=== PATIENT | female | born 1955 | race Caucasian/White ===

== ENCOUNTER → 2017-08-16 | Outpatient (CLI) | payer MEDICARE, OTHER ==
[~2017-08-16] MED LIST: ALBU90OI6 INH; ALPR.5 PO; BECL80OI INH; CARB100ER PO; CARB200 PO; CARB200ER PO; CARBAMAZEPINE; CLIN150 PO; CRUTCH4 USE; CYCL10 PO; Colace100 MG PO; DEXA4 PO; EFFEXOR; ESCI10; Epitol200 MG PO; FLUT110OIA INH; GABA300 PO; IBUP200 PO; Keflex500 MG PO; LORA1 PO; METPHE10 PO; MODAFINIL100 MG PO; NAPR500 PO; Nicotine Patch1 EAC5 TOP; Norco 5-325 Ta1 EACH PO; OMEP20ER PO; OMEPRAZOLE MAGN20 MG PO; OXYACE5T PO; PANT40; Prednisone20 MG PO; QUET100 PO; QUET25 PO; TOPI100; TRAM50 PO; Tylenol325 MG PO; VENL75; VENL75 PO; VENL75ER PO
[2017-08-17 18:48] LABS: MDA Not Detected (NOTDET); MDEA Not Detected (NOTDET); MDMA Not Detected (NOTDET)
[2017-08-17 19:59] LABS: Codeine Not Detected (NOTDET); Hydrocodone Not Detected (NOTDET); Hydromorphone Not Detected (NOTDET); Morphine 561 ng/mL (NOTDET); Norhydrocodone Not Detected (NOTDET); Noroxycodone Not Detected (NOTDET)
[2017-08-17 23:13] LABS: Buprenorphine GCMS 16 ng/mL (NOTDET); Norbuprenorphine GCMS 5 ng/mL (NOTDET)
== END ==
LOC: LAB 08:45
PROVIDERS: Psychiatry & Neurology Psychiatry
DX: F19.10 Other psychoactive substance abuse, uncomplicated (principal)
CPT/HCPCS: G0480

== ENCOUNTER 2017-09-02 09:57 | Observation (INO) | payer MEDICARE, OTHER ==
[~2017-09-02] VITALS: Ht 167.6 cm; Wt 68.9 kg
[~2017-09-02 09:57] MED LIST changes: -MODAFINIL100 MG PO; -Nicotine Patch1 EAC5 TOP; -OMEPRAZOLE MAGN20 MG PO
[2017-09-02 10:18] LABS: BASOPHILS ABSOLUTE AUTO 0.04 K/mm3 (0.00-0.23); BASOPHILS PERCENT AUTO 1 % (0-2); EOSINOPHILS ABSOLUTE AUTO 0.14 K/mm3 (0.00-0.68); EOSINOPHILS PERCENT AUTO 2 % (0-6); Hematocrit 45.3 % (33.0-51.0); Hemoglobin 14.8 g/dL (11.5-16.0); IMMATURE GRAN ABSOLUTE AUTO 0.03 K/mm3 (0.00-0.10); IMMATURE GRAN PERCENT AUTO 0 % (0-1); LYMPHOCYTES ABSOLUTE AUTO 2.17 K/mm3 (0.84-5.20); LYMPHOCYTES PERCENT AUTO 26 % (21-46); MONOCYTES ABSOLUTE AUTO 0.74 K/mm3 (0.16-1.47); MONOCYTES PERCENT AUTO 9 % (4-13); Mean Corpuscular HGB 27.7 pg (26.0-34.0); Mean Corpuscular HGB Conc 32.7 g/dL (31.5-36.5); Mean Corpuscular Volume 85 fL (80-100); Mean Platelet Volume 9.4 fL (9.1-12.4); NEUTROPHILS ABSOLUTE AUTO 5.16 K/mm3 (1.96-9.15); NEUTROPHILS PERCENT AUTO 62 % (41-73); Platelet Count 333 K/mm3 (150-400); RDW Coefficient Variation 13.6 % (11.7-14.2); RDW Standard Deviation 42.2 fL (35.1-46.3); Red Blood Cell Count 5.35 M/mm3 (3.80-5.20); White Blood Cell Count 8.28 K/mm3 (4.00-11.30)
[2017-09-02 10:39] LABS: Alanine Aminotransfer (ALT/SGP 40 U/L (12-78); Albumin, Blood 3.4 g/dL (3.4-5.0); Albumin/Globulin Ratio 0.8 (0.8-1.8); Alk Phos 102 U/L (50-136); Anion Gap 6 mmol/L (6-16); Aspartate Aminotrans (AST/SGOT 24 U/L (12-37); Bilirubin, Total 0.1 mg/dL (0.1-1.0); Blood Urea Nitrogen 21 mg/dL (8-24); Bun/Creatinine Ratio 33.8 (12.0-20.0); CO2, Blood 28 mmol/L (21-32); Calcium, Blood 8.8 mg/dL (8.5-10.1); Chloride, Blood 105 mmol/L (98-108); Creatinine, Blood 0.62 mg/dL (0.40-1.00); Globulin, Blood 4.5 g/dL (2.2-4.0); Glomerular Filtration Rate >60 (60-); Glucose, Blood 93 mg/dL (70-99); Potassium, Blood 4.4 mmol/L (3.5-5.5); Sodium, Blood 139 mmol/L (136-145); Total Protein, Blood 7.9 g/dL (6.4-8.2); Troponin I <0.015 ng/mL (0.000-0.040)
[2017-09-02 10:54] LABS: Carbamazepine 8.8 ug/mL (4.0-12.0)
[2017-09-02 12:03] LABS: Magnesium, Blood 2.3 mg/dL (1.6-2.4)
[2017-09-02 14:35] LABS: U Amphetamine Screen Not Detected; U Barbituate Screen Not Detected; U Benzodiazapine Screen Not Detected; U Buprenorphine Screen Not Detected; U Cannabinoids Screen DETECTED; U Cocaine Screen Not Detected; U Methadone Screen Not Detected; U Methamphetamine Screen Not Detected; U Opiates Screen Not Detected; U Oxycodone Screen Not Detected; U Phencyclidine Screen Not Detected; U Propoxyphene Screen Not Detected
[2017-09-03 04:29] LABS: BASOPHILS ABSOLUTE AUTO 0.04 K/mm3 (0.00-0.23); BASOPHILS PERCENT AUTO 1 % (0-2); EOSINOPHILS ABSOLUTE AUTO 0.12 K/mm3 (0.00-0.68); EOSINOPHILS PERCENT AUTO 2 % (0-6); Hematocrit 39.7 % (33.0-51.0); Hemoglobin 12.8 g/dL (11.5-16.0); IMMATURE GRAN ABSOLUTE AUTO 0.03 K/mm3 (0.00-0.10); IMMATURE GRAN PERCENT AUTO 0 % (0-1); LYMPHOCYTES ABSOLUTE AUTO 2.24 K/mm3 (0.84-5.20); LYMPHOCYTES PERCENT AUTO 33 % (21-46); MONOCYTES ABSOLUTE AUTO 0.61 K/mm3 (0.16-1.47); MONOCYTES PERCENT AUTO 9 % (4-13); Mean Corpuscular HGB 27.7 pg (26.0-34.0); Mean Corpuscular HGB Conc 32.2 g/dL (31.5-36.5); Mean Corpuscular Volume 86 fL (80-100); Mean Platelet Volume 9.6 fL (9.1-12.4); NEUTROPHILS PERCENT AUTO 56 % (41-73); Platelet Count 278 K/mm3 (150-400); RDW Coefficient Variation 13.6 % (11.7-14.2); RDW Standard Deviation 43.1 fL (35.1-46.3); Red Blood Cell Count 4.62 M/mm3 (3.80-5.20); White Blood Cell Count 6.84 K/mm3 (4.00-11.30)
[2017-09-03 05:05] LABS: Alanine Aminotransfer (ALT/SGP 36 U/L (12-78); Albumin, Blood 3.1 g/dL (3.4-5.0); Albumin/Globulin Ratio 0.8 (0.8-1.8); Alk Phos 89 U/L (50-136); Anion Gap 6 mmol/L (6-16); Aspartate Aminotrans (AST/SGOT 21 U/L (12-37); Bilirubin, Total 0.2 mg/dL (0.1-1.0); Blood Urea Nitrogen 26 mg/dL (8-24); Bun/Creatinine Ratio 40.6 (12.0-20.0); CHOL/HDL RATIO 3.7; CO2, Blood 29 mmol/L (21-32); Calcium, Blood 8.3 mg/dL (8.5-10.1); Chloride, Blood 105 mmol/L (98-108); Cholesterol 236 mg/dL (50-200); Creatinine, Blood 0.64 mg/dL (0.40-1.00); Glomerular Filtration Rate >60 (60-); Glucose, Blood 97 mg/dL (70-99); HDL Cholesterol 64 mg/dL (>39); Low Density Lipoprotein Chol 129 mg/dL (0-110); Potassium, Blood 4.8 mmol/L (3.5-5.5); Sodium, Blood 140 mmol/L (136-145); Total Protein, Blood 7.1 g/dL (6.4-8.2); Triglycerides 217 mg/dL (30-160); Very Low Density Lipoprot Chol 43 mg/dL (6-32)
[2017-09-05] MEDS ORDERED: MODAFINIL100 MG PO (09:06)
[2017-09-05] MEDS ORDERED: Nicotine Patch1 EAC5 TOP (09:08)
[2017-09-05] MEDS ORDERED: OMEPRAZOLE MAGN20 MG PO (09:09)
== END 2017-09-05 10:07 | disposition home or self-care (01) ==
LOC: ER 09:57 → MEDS 09:58 → PCU 09:58 → MEDS 12:12 → ENPENDDIS 09-05 08:00 → MEDS 09-05 10:07
PROVIDERS: Emergency Medicine; Internal Medicine
DX: I48.91 Unspecified atrial fibrillation (principal); I48.92 Unspecified atrial flutter; B19.20 Unspecified viral hepatitis C without hepatic coma; G93.89 Other specified disorders of brain; F41.9 Anxiety disorder, unspecified; R40.0 Somnolence; F32.9 Major depressive disorder, single episode, unspecified; G40.909 Epilepsy, unspecified, not intractable, without status epilepticus; J44.9 Chronic obstructive pulmonary disease, unspecified; F19.11 Other psychoactive substance abuse, in remission; G62.9 Polyneuropathy, unspecified; Z90.710 Acquired absence of both cervix and uterus; Z98.890 Other specified postprocedural states; Z87.891 Personal history of nicotine dependence; Z79.899 Other long term (current) drug therapy; Z90.89 Acquired absence of other organs
CPT/HCPCS: 36415; 71045; 80053; 80061; 80156; 83735; 83880; 84443; 84484; 85025; 93005; 93010; 93306; 96372; 96374; 96375; 96376; 99285; G0378; J1650; J2405

== ENCOUNTER → 2017-11-03 | Outpatient (CLI) | payer MEDICARE, OTHER ==
[~2017-11-03] MED LIST changes: +MODAFINIL100 MG PO; +Nicotine Patch1 EAC5 TOP; +OMEPRAZOLE MAGN20 MG PO
== END | disposition home or self-care (01) ==
LOC: LAB 10:55 → LAB SHORT 10:55
DX: Z51.81 Encounter for therapeutic drug level monitoring (principal); Z79.899 Other long term (current) drug therapy
CPT/HCPCS: G0480

== ENCOUNTER 2018-07-20 08:33 | Emergency (ER) | payer MEDICARE, OTHER ==
[~2018-07-20] VITALS: Ht 162.6 cm; Wt 81.7 kg
[2018-07-20 09:35] LABS: Source, Urine Voided
[2018-07-20 09:40] LABS: BASOPHILS ABSOLUTE AUTO 0.03 K/mm3 (0.00-0.23); BASOPHILS PERCENT AUTO 0 % (0-2); EOSINOPHILS ABSOLUTE AUTO 0.11 K/mm3 (0.00-0.68); EOSINOPHILS PERCENT AUTO 2 % (0-6); Hematocrit 41.3 % (33.0-51.0); Hemoglobin 13.6 g/dL (11.5-16.0); IMMATURE GRAN ABSOLUTE AUTO 0.03 K/mm3 (0.00-0.10); IMMATURE GRAN PERCENT AUTO 0 % (0-1); LYMPHOCYTES ABSOLUTE AUTO 2.04 K/mm3 (0.84-5.20); LYMPHOCYTES PERCENT AUTO 28 % (21-46); MONOCYTES ABSOLUTE AUTO 0.61 K/mm3 (0.16-1.47); MONOCYTES PERCENT AUTO 8 % (4-13); Mean Corpuscular HGB 28.8 pg (26.0-34.0); Mean Corpuscular HGB Conc 32.9 g/dL (31.5-36.5); Mean Corpuscular Volume 88 fL (80-100); Mean Platelet Volume 9.9 fL (9.1-12.4); NEUTROPHILS ABSOLUTE AUTO 4.52 K/mm3 (1.96-9.15); NEUTROPHILS PERCENT AUTO 62 % (41-73); Platelet Count 284 K/mm3 (150-400); RDW Standard Deviation 42.3 fL (35.1-46.3); Red Blood Cell Count 4.72 M/mm3 (3.80-5.20); White Blood Cell Count 7.34 K/mm3 (4.00-11.30)
[2018-07-20 09:41] LABS: Appearance, Urine Clear (Clear); Bilirubin, Urine Neg (Neg); Blood, Urine Neg (Neg); Color, Urine Yellow (P-Yellow); Glucose Qualitative, Urine Neg (Neg); Ketones, Urine Neg (Neg); Leukocyte Esterase, Urine 2+ (Neg); Nitrite, Urine Neg (Neg); Protein, Urine Neg (Neg); Specific Gravity, Urine 1.025 (1.003-1.022); Urobilinogen, Urine NORM (Normal)
[2018-07-20 09:53] LABS: Bacteria Rare /hpf; Red Blood Cells, Urine Not Seen /hpf (0-2); Squamous Epithelial Cells Rare /hpf (Few)
[2018-07-20 10:05] LABS: U Amphetamine Screen Not Detected; U Barbituate Screen Not Detected; U Benzodiazapine Screen Not Detected; U Buprenorphine Screen Not Detected; U Cannabinoids Screen DETECTED; U Cocaine Screen Not Detected; U Methadone Screen Not Detected; U Methamphetamine Screen Not Detected; U Opiates Screen Not Detected; U Oxycodone Screen Not Detected; U Phencyclidine Screen Not Detected; U Propoxyphene Screen Not Detected
[2018-07-20 10:16] LABS: Alanine Aminotransfer (ALT/SGP 35 U/L (12-78); Albumin, Blood 3.6 g/dL (3.4-5.0); Albumin/Globulin Ratio 0.9 (0.8-1.8); Alk Phos 82 U/L (50-136); Anion Gap 6 mmol/L (6-16); Aspartate Aminotrans (AST/SGOT 24 U/L (12-37); Bilirubin, Total 0.3 mg/dL (0.1-1.0); Blood Urea Nitrogen 19 mg/dL (8-24); Bun/Creatinine Ratio 33.4 (12.0-20.0); CO2, Blood 26 mmol/L (21-32); Calcium, Blood 8.2 mg/dL (8.5-10.1); Chloride, Blood 108 mmol/L (98-108); Creatinine, Blood 0.57 mg/dL (0.40-1.00); Ethanol (Alcohol), Blood, Med <3 mg/dL; Globulin, Blood 3.8 g/dL (2.2-4.0); Glomerular Filtration Rate >60 (60-); Glucose, Blood 80 mg/dL (70-99); Potassium, Blood 4.2 mmol/L (3.5-5.5); Salicylate 3.5 mg/dL (2.8-20.0); Sodium, Blood 140 mmol/L (136-145); Total Protein, Blood 7.4 g/dL (6.4-8.2)
[2018-07-20 10:22] LABS: Acetaminophen, Random <2.0 ug/mL (10.0-30.0)
[2018-07-20] MEDS ORDERED: Tegretol200 MG PO (12:00)
== END 2018-07-20 13:00 | disposition home or self-care (01) ==
LOC: ER 08:33
PROVIDERS: Emergency Medicine
DX: F32.9 Major depressive disorder, single episode, unspecified (principal); F43.9 Reaction to severe stress, unspecified; F41.9 Anxiety disorder, unspecified; Z72.0 Tobacco use
CPT/HCPCS: 80053; 81001; 81025; 84443; 85025; 87086; 99285; G0480; Q3014

== ENCOUNTER 2019-01-02 08:41 | Emergency (ER) | payer MEDICARE, OTHER ==
[~2019-01-02 08:41] MED LIST changes: +Tegretol200 MG PO
== END 2019-01-02 08:55 | disposition left against medical advice (07) ==
LOC: ER 08:41
DX: Z53.21 Procedure and treatment not carried out due to patient leaving prior to being seen by health care provider (principal)

== ENCOUNTER 2021-01-30 19:16 | Inpatient (IN) | payer MEDICARE ==
[~2021-01-30] VITALS: Ht 162.6 cm; Wt 61.8 kg
--- NOTE | 2021-01-30 01:15 | NUR ---
ASSUMED CARE OF PATIENT AT APPROXIMATELY 0042 FROM ED RN. PATIENT ARRIVED TO UNIT SLOUCHED OVER IN ED BED; HEPARIN GTT LINE NOT CONNECTED AND CARDIZEM GTT AT 15MG/HR. PATIENT COMPLAINING OF CHEST PAIN IN CHEST THAT SHE DESCRIBES AT "[facility]"; PATIENT STATES NOTHING GIVEN IN ER HELPED; DENIES THAT NITRO HELPED BUT WILL TAKE FENTANYL. PATIENT HAVING HARD TIME GETTING COMFORTABLE; SITTING UP AND LAYING BACK; REPORTS BED HURTS BACK; BREAHING LABORED AT TIMES. PG STATED BY EVANGELINA JOLLY, DUPLIGRAPH OPERATOR. PATIENT REPORTS USING HEROIN 4/5 TIMES A DAY EVERY DAY; METH AND MARIJUANA. ADMISSION COMPLETE. AFIB W/ RATE IN 70-90'S; CARDIZEM GTT AT 15ML HELD AT THIS TIME DUE TO SBP 90-82 SINCE ARRIVAL. HEPARIN GTT STARTED PER ORDER.
[2021-01-30 19:35] LABS: Calcium, Ionized (POC) 0.94 mmol/L (1.10-1.46); Chloride (POC) 97 mmol/L (98-108); Creatinine (POC) 0.7 mg/dL (0.6-1.0); Glucose (ISTAT POC) 149 mg/dL (70-99); Hemoglobin (POC) 14.3 g/dL (12.0-16.0); Potassium (POC) 3.1 mmol/L (3.5-5.5); Sodium (POC) 131 mmol/L (135-148); Total CO2 (POC) 22 mmol/L (21-32)
[2021-01-30 20:46] LABS: Source, Urine Catheter
[2021-01-30 20:51] LABS: Bilirubin, Urine Neg (Neg); Blood, Urine 1+ (Neg); Glucose Qualitative, Urine 1+ (Neg); Ketones, Urine Neg (Neg); Leukocyte Esterase, Urine 1+ (Neg); Nitrite, Urine Neg (Neg); Protein, Urine 3+ (Neg); Urobilinogen, Urine NORM (Normal)
[2021-01-30 20:52] LABS: Appearance, Urine Clear (Clear); Color, Urine Yellow (P-Yellow)
[2021-01-30 20:59] LABS: Bacteria Many /hpf
[2021-01-30 21:00] LABS: Squamous Epithelial Cells Mod /hpf (Few)
[2021-01-30 21:04] LABS: U Amphetamine Screen DETECTED; U Barbituate Screen Not Detected; U Benzodiazapine Screen Not Detected; U Buprenorphine Screen Not Detected; U Cannabinoids Screen DETECTED; U Cocaine Screen Not Detected; U Methadone Screen Not Detected; U Methamphetamine Screen DETECTED; U Opiates Screen DETECTED; U Oxycodone Screen Not Detected; U Phencyclidine Screen Not Detected; U Propoxyphene Screen Not Detected
[2021-01-30 21:21] LABS: Hematocrit 37.9 % (33.0-51.0); Hemoglobin 12.8 g/dL (11.5-16.0); Mean Corpuscular HGB 26.8 pg (26.0-34.0); Mean Corpuscular HGB Conc 33.8 g/dL (31.5-36.5); Mean Corpuscular Volume 80 fL (80-100); Mean Platelet Volume 10.3 fL (9.1-12.4); Platelet Count 190 K/mm3 (150-400); RDW Standard Deviation 41.2 fL (35.1-46.3); Red Blood Cell Count 4.77 M/mm3 (3.80-5.20); White Blood Cell Count 18.24 K/mm3 (4.00-11.30)
[2021-01-30 21:37] LABS: International Normalized Ratio 1.06; Prothrombin Time Results 11.4 Sec (9.7-11.5)
[2021-01-30 21:50] LABS: Alanine Aminotransfer (ALT/SGP 28 U/L (12-78); Albumin, Blood 2.8 g/dL (3.4-5.0); Albumin/Globulin Ratio 0.7 (0.8-1.8); Alk Phos 105 U/L (50-136); Anion Gap 9 mmol/L (6-16); Aspartate Aminotrans (AST/SGOT 27 U/L (12-37); Bilirubin, Total 0.7 mg/dL (0.1-1.0); Blood Urea Nitrogen 13 mg/dL (8-24); Bun/Creatinine Ratio 19.5 (12.0-20.0); CO2, Blood 24 mmol/L (21-32); Calcium, Blood 8.6 mg/dL (8.5-10.1); Chloride, Blood 102 mmol/L (98-108); Creatinine, Blood 0.67 mg/dL (0.40-1.00); Globulin, Blood 4.3 g/dL (2.2-4.0); Glomerular Filtration Rate >60 (60-); Glucose, Blood 128 mg/dL (70-99); Sodium, Blood 135 mmol/L (136-145); Total Protein, Blood 7.1 g/dL (6.4-8.2); Troponin I 0.861 ng/mL (0.000-0.040)
[2021-01-30 22:14] LABS: BAND PERCENT MAN 30 % (0-8); BASOPHILS PERCENT MAN 0 % (0-2); EOSINOPHILS PERCENT MAN 0 % (0-6); LYMPHOCYTES ABSOLUTE MAN 1.09 K/mm3 (0.84-5.20); LYMPHOCYTES PERCENT MAN 6 % (21-46); MONOCYTES ABSOLUTE MAN 0.54 K/mm3 (0.16-1.47); MONOCYTES PERCENT MAN 3 % (4-13); NEUTROPHILS ABSOLUTE MAN 16.59 K/mm3 (1.96-9.15); SEG NEUTROPHILS PERCENT MAN 61 % (41-73); TOTAL CELLS COUNTED 100
[2021-01-30 22:47] LABS: CHOL/HDL RATIO 2.6; Cholesterol 137 mg/dL (50-200); HDL Cholesterol 53 mg/dL (>39); LDL/HDL RATIO 1.3; Low Density Lipoprotein Chol 70 mg/dL (0-110); Thyroid Stimulating Hormone 0.517 uIU/mL (0.360-4.800); Triglycerides 68 mg/dL (30-160); Very Low Density Lipoprot Chol 14 mg/dL (6-32)
[2021-01-31 00:23] LABS: SARS-Cov-2 (COVID-19) PCR, MMC NEGATIVE (NEGATIVE)
--- NOTE | 2021-01-31 01:28 | NUR ---
ST CHANGES; ST CHANGES NOTED ON HEART MONITOR; EKG DONE AND TAKEN TO DR. FISHER; CALLING COSTUME DIRECTOR
--- NOTE | 2021-01-31 01:35 | NUR ---
DR. WILSON WAS NOTIFIED THAT PT'S RHYTHM HAD CHANGED AND THAT THERE'S ELEVATIONS GLOBALLY ON THE EKG AND THAT PT IS HAVING CRUSHING BACK PAIN DIRECTLY BEHIND HER HEART. WAS MADE AWARE OF HER ELEVATED TROP. DR. WILSON STATES THAT THE PT IS HAVING REPOLARIZATION ISSUES OR PERICARDITIS AND THAT THIS IS NOT A STEMI.
[2021-01-31 03:00] LABS: Anion Gap 6 mmol/L (6-16); Blood Urea Nitrogen 13 mg/dL (8-24); Bun/Creatinine Ratio 17.1 (12.0-20.0); CO2, Blood 26 mmol/L (21-32); Calcium, Blood 8.3 mg/dL (8.5-10.1); Chloride, Blood 103 mmol/L (98-108); Creatinine, Blood 0.76 mg/dL (0.40-1.00); Glomerular Filtration Rate >60 (60-); Glucose, Blood 130 mg/dL (70-99); Potassium, Blood 3.8 mmol/L (3.5-5.5); Sodium, Blood 135 mmol/L (136-145)
--- NOTE | 2021-01-31 03:48 | NUR ---
CALLED DR. FISHER REGARDING PATIENT CALLING OUT WITH 10/10 CHEST PAIN REQUESTING FENTANYL; STATES NITRO DOESNT HELP; 2LPM VIA NC FOR CP; DIAPHORETIC; SBP IN 90'S; ORDERS FOR 250CC BOLUS AND CALL IF BOLUS DOES NOT IMPROVE BP.
--- NOTE | 2021-01-31 04:18 | NUR ---
CALLED DR. FISHER REGARDING PATIENT CALLING OUT STATING CHEST PAIN; BLOOD PRESSURE HAD COME UP TO 110 SBP BUT BACK DOWN TO 97/58 AFTER BOLUS; ORDERS FOR ANOTHER 250ML BOLUS NOW
--- NOTE | 2021-01-31 06:14 | NUR ---
FENTANYL HELPED PAIN; PATIENT ATTEMPTED TO GET UP INDEPENDENTLY TO URINATE; HAS BEEN INCONTINENT OF URINE; REPORTS CHEST PAIN STILL BUT THEN REPORTS SHE WOULD LIKE STRAWBERRY YOUGURT FOR BREAKFAST. BLOOD PRESSURE STABLE; NO OTHER ACUTE CHANGES TO REPORT.
[2021-01-31 09:00] LABS: Hematocrit 35.8 % (33.0-51.0); Hemoglobin 11.8 g/dL (11.5-16.0); Mean Corpuscular HGB 26.6 pg (26.0-34.0); Mean Corpuscular Volume 81 fL (80-100); Mean Platelet Volume 10.6 fL (9.1-12.4); Platelet Count 186 K/mm3 (150-400); RDW Coefficient Variation 14.2 % (11.7-14.2); RDW Standard Deviation 41.9 fL (35.1-46.3); Red Blood Cell Count 4.43 M/mm3 (3.80-5.20); White Blood Cell Count 20.85 K/mm3 (4.00-11.30)
[2021-01-31 09:36] LABS: BAND PERCENT MAN 26 % (0-8); BASOPHILS PERCENT MAN 0 % (0-2); EOSINOPHILS PERCENT MAN 0 % (0-6); LYMPHOCYTES ABSOLUTE MAN 1.04 K/mm3 (0.84-5.20); LYMPHOCYTES PERCENT MAN 5 % (21-46); MONOCYTES ABSOLUTE MAN 0.83 K/mm3 (0.16-1.47); MONOCYTES PERCENT MAN 4 % (4-13); NEUTROPHILS ABSOLUTE MAN 18.97 K/mm3 (1.96-9.15); SEG NEUTROPHILS PERCENT MAN 65 % (41-73); TOTAL CELLS COUNTED 100
--- NOTE | 2021-01-31 12:56 | NUR ---
Echocardiogram performed.
--- NOTE | 2021-01-31 17:10 | NUR ---
PT SUMMARY: PT POST ANGIO THIS AM CORONARY ARTERIES WERE CLEAR NO INTERVENTION DONE, RIGHT RADIAL ACCESS SITE WITH TEGADERM CDI NO HEMATOMA NOTED AROUND THE SITE. VITALS HRR REMAINED AFIB CONTROLLED ON THE 90'S CARDIZEM GTT OFF PT WAS STARTED ON ORAL METOPROLOL. BP SYSTOLIC ON THE 120'S, SATS ABOVE 97% ON RA, AFEBRILE. KEEPS C/O CHEST AND ABD PAIN, NAUSEA AND DRY HEAVING SHOWING SYMPTOMS OF HEROIN WITHDRAWAL PT STATED SHE WANTS TO GO HOME AND THAT SHE NEEDS HER HEROINE SHOT, ZOFRAN AND MAALOX ORDERED PER PHARMACY POLICY PT CANNOT START ANY SUBOXONE AND METHADONE HERE SINCE PT IS NOT ON THERAPY OR REHAB PT WAS REQUESTING FOR ONE FOR THE WITHDRAWAL, PT UNDERSTOOD WHEN EXPLAINED. CONTINUES TO SCREAM AND YELL FOR PAIN. PT WAS STARTED ON VANCO WELL FOR SEPSIS, CONTINUES ON HEPARIN GTT FOR PE. SBA FOR TRANSFERS. PT ABLE TO MAKE NEEDS KNOWN, ANXIOUS MOST OF THE TIME. DR LINO AWARE OF PT'S SITUATION. NO APPETITE AT THIS TIME REFUSED HER DINNER. PT ALSO C/O PINS AND NEEDLES ON BOTH LEGS, BENGAY ORDERED BUT WAS NOT THAT EFFECTIVE. PT GOT POWERGLIDE PULLED AND ONE IV LINE, IMPULSIVE AT TIMES, BED ALARM ON FOR SAFETY, MULTIPLE ATTEMPTS OF GETTING OUT OF BED WITHOUT CALLING FOR HELP. PT ABLE TO MAKE NEEDS KNOWN, CALL LIGHTS WITHIN REACH WILL REPORT TO ONCOMING SHIFT.
--- NOTE | 2021-01-31 22:30 | NUR ---
PT WANTING TO LEAVE DUE TO SEVERE PAIN THAT ORDERED MEDS WERE NOT HELPING. PT STS SHE HAS NEUROPATHY AND SELF MEDICATES. DR DAVIDSON WAS CALLED. PT PULLED ALL LINES AND CORDS OFF. HEPARIN WAS PUT ON STANDBY UNTIL NEW IV WAS STARTED.
[2021-02-01 01:49] LABS: Hematocrit 35.2 % (33.0-51.0); Hemoglobin 11.9 g/dL (11.5-16.0); Mean Corpuscular HGB 26.7 pg (26.0-34.0); Mean Corpuscular HGB Conc 33.8 g/dL (31.5-36.5); Mean Corpuscular Volume 79 fL (80-100); Mean Platelet Volume 10.8 fL (9.1-12.4); Platelet Count 241 K/mm3 (150-400); RDW Coefficient Variation 14.4 % (11.7-14.2); Red Blood Cell Count 4.45 M/mm3 (3.80-5.20); White Blood Cell Count 21.24 K/mm3 (4.00-11.30)
[2021-02-01 02:06] LABS: Alanine Aminotransfer (ALT/SGP 21 U/L (12-78); Albumin, Blood 2.4 g/dL (3.4-5.0); Albumin/Globulin Ratio 0.6 (0.8-1.8); Alk Phos 116 U/L (50-136); Anion Gap 5 mmol/L (6-16); Aspartate Aminotrans (AST/SGOT 17 U/L (12-37); Bilirubin, Total 0.8 mg/dL (0.1-1.0); Blood Urea Nitrogen 16 mg/dL (8-24); CO2, Blood 26 mmol/L (21-32); Calcium, Blood 8.5 mg/dL (8.5-10.1); Chloride, Blood 102 mmol/L (98-108); Creatinine, Blood 0.55 mg/dL (0.40-1.00); Glomerular Filtration Rate >60 (60-); Glucose, Blood 161 mg/dL (70-99); Potassium, Blood 3.5 mmol/L (3.5-5.5); Sodium, Blood 133 mmol/L (136-145); Total Protein, Blood 6.4 g/dL (6.4-8.2)
[2021-02-01 02:12] LABS: BAND PERCENT MAN 18 % (0-8); BASOPHILS PERCENT MAN 0 % (0-2); EOSINOPHILS PERCENT MAN 0 % (0-6); LYMPHOCYTES ABSOLUTE MAN 1.48 K/mm3 (0.84-5.20); LYMPHOCYTES PERCENT MAN 7 % (21-46); MONOCYTES ABSOLUTE MAN 0.84 K/mm3 (0.16-1.47); MONOCYTES PERCENT MAN 4 % (4-13); SEG NEUTROPHILS PERCENT MAN 71 % (41-73); TOTAL CELLS COUNTED 100
--- NOTE | 2021-02-01 04:44 | NUR ---
SHIFT SUMMARY PT IS ALERT AND ORIENTED. PT HAS HAD SOME AGITATION DUT TO NOT RECIEVING THE PAIN MANAGEMENT THAT SHE NEEDED. SHE REMOVED IV LINES AND CORDS AND STARTED GETTING DRESSED TO GO HOME "WHERE SHE COULD GET HER MEDICATION." THE DR WAS CALLED AND GAVE A NEW ORDER FOR PAIN MANAGEMENT THAT HAS SO FAR BEEN WORKING. PT DOES GET OUT OF BED AND SET OFF THE ALARM OCCASSIONALY. PT REPORTS CHEST PAIN AND LEG PAIN 10/10. PT HAS A BRIEF ON DUE TO SOME INCONTINANCE. VITALS ARE STABLE AND IS ON ROOM AIR WITH SATS ABOVE 90%. CALL LIGHT IS WITHIN REACH.
--- NOTE | 2021-02-01 09:50 | NUR ---
PT ALERT AND ORIENTED X4. SLEEPY BUT MOAINING OUT IN PAIN THIS AM. MEDICATED PER EMAR WELL REPOSITIONED AND DISTRACTION. PATIENT STATES HER PAIN IS "EVERYWHERE". HER LEGS TWITCHED DURING MY ASSESSMENT AND SHE ATTRIBUTES THIS TO HER RESTLESS LEG SYNDROME. ON ROOM AIR, LUNGS SOUNDING CLEAR. TELE SHOWING AFIB RATE CONTROLLED. DENIES CHEST PRESSURE BUT STATES SHE DOES HAVE SOME CHEST PAIN HER PAIN IS EVERYWHERE. VITAL SIGNS STABLE. BOWEL TONES PRESENT. UP TO BSC WITH 1 PERSON ASSIST. BED ALARM ON FOR SAFETY. HEPARIN INFUSING. ANTIBIOTICS INFUSED. WILL CONTINUE TO MONITOR. CALL LIGHT IN REACH.
--- NOTE | 2021-02-01 13:14 | NUR ---
PT COMPLAINING OF NEUROPATHY PAIN, CALL PLACED TO PHARMACY AND DR. LINO TO ORDER PATIENTS LYRICA. NEW ORDER FOR LYRICA BID. WILL CONTINUE TO MONITOR.
--- NOTE | 2021-02-01 14:40 | NUR ---
TRASNFER: NO ACUTE CHANGES. CONTINUED PAIN MANAGEMENT. HEPARIN INFUSING. PT TRANSFERRED TO MEDICAL. REPORTED OFF TO MEDICAL FLOOR NURSE. PT TRANFERRED UP TO MEDICAL FLOOR VIA WHEELCHAIR WITH ALL PERSONAL BELONGINGS.
--- NOTE | 2021-02-01 15:24 | NUR ---
PT FROM ICU TO MEDICAL FLOOR. PT IS 65YO/F WHO WAS ADMITTED FOR CP AND RAPID AFIB. PT WAS DIAGNOSED TO HAVE PERICARDITIS, AND SHE HAD AN ANGIO- R RADIAL SITE INTACT. PT ALSO DIAGNOSED TO HAVE P.E OF THE R LOWER LOBE. PT TAKING INDOMETHACIN AND IS ON HEPARIN DRIP. PT STATED SHE HAS PAIN EVERYWHERE. PT APPARENTLY USE DRUGS "HEROIN/METH". NO VEGETATIONS FOUND PER TUBE WINDER HAND. PT VERY UNSTEADY AND IMPULSIVE, SO BED ALARM IS ON. MEDICATED FOR PAIN PER EMAR. PT IS C/O OF BLE NEUROPATHY; PT NO TELE. THE TUBE WINDER HAND STATED THAT THIS PT TRIED TO LEAVE AMA LAST NIGHT AND TRIED TO PULL HER IV. PT HAS POWERGLIDE ON ARTHUR, AND RIGHT IV. PT HAS MULTIPLE HX OF COMORBIDITIES SUCH COPD, NEUROPATHY, ANXIETY, DEPRESSION, METH USE, SMOKER, AND HEP C. BED ALARM IS ON AND CALL LIGHT WITHIN REACH
--- NOTE | 2021-02-01 17:53 | NUR ---
NICO AT 1512 TODAY, PT RECEIVED 50 MCG OF FENTANYL- WITNESSED BY NAZARIO ALMANZAR AND WASTED THE 50 MCG. THIS NURSE THOUGHT THAT THE PYXIS WAS ASKING HOW MANY VIAL INSTEAD OF HOW MUCH DOSE WILL BE GIVEN. PYXIS IS NOW SHOWING THAT THIS RN GAVE 1 MCG AND WASTED 99MCG IN A 100 MCG/VIAL. TEXTILE CONVERSION MANAGER AWARE- DIONNA KAYE AND ALSO CALLED NURSING REDUCING MACHINE OPERATOR. CALLED THE PHARMACY, BUT UNABLE TO HELP RESOLVE THE ISSUE
--- NOTE | 2021-02-01 18:18 | NUR ---
SHIFT SUMMARY PT IS ALERT BUT VERY DROWSY. NEVER USE THE CALL LIGHT EVEN IF INSTRUCTED. PT VERY IMPULSIVE AND UNSTEADY ON HER FEET. PT RECEIVING PAIN MEDICATION PER EMAR FOR PAIN. PT C/O LEEG PAIN AND STATED THAT FENTANYL MAKES HER NEUROPATHY WORSE AND NOT HELPING. PT RECEIVING HEPARIN DRIP FOR PULMUNARY EMBOLI. PT STATED NOTHING REALLY HELPS HER LEGS. VERY HIGH FALL RISK AND WOULD BENEFIT TO BE IN SPECIAL CARE UNIT. BED ALARM IS ON AND CALL LIGHT WITHIN REACH.
[2021-02-01 22:53] LABS: Vancomycin, Trough 1.7 ug/mL (5.0-10.0)
[2021-02-02 01:10] LABS: BASOPHILS ABSOLUTE AUTO 0.04 K/mm3 (0.00-0.23); BASOPHILS PERCENT AUTO 0 % (0-2); EOSINOPHILS ABSOLUTE AUTO 0.03 K/mm3 (0.00-0.68); EOSINOPHILS PERCENT AUTO 0 % (0-6); Hematocrit 34.5 % (33.0-51.0); Hemoglobin 11.8 g/dL (11.5-16.0); IMMATURE GRAN ABSOLUTE AUTO 0.41 K/mm3 (0.00-0.10); IMMATURE GRAN PERCENT AUTO 2 % (0-1); LYMPHOCYTES ABSOLUTE AUTO 1.57 K/mm3 (0.84-5.20); LYMPHOCYTES PERCENT AUTO 7 % (21-46); MONOCYTES ABSOLUTE AUTO 1.33 K/mm3 (0.16-1.47); MONOCYTES PERCENT AUTO 6 % (4-13); Mean Corpuscular HGB 26.6 pg (26.0-34.0); Mean Corpuscular HGB Conc 34.2 g/dL (31.5-36.5); Mean Corpuscular Volume 78 fL (80-100); Mean Platelet Volume 10.7 fL (9.1-12.4); NEUTROPHILS ABSOLUTE AUTO 18.28 K/mm3 (1.96-9.15); NEUTROPHILS PERCENT AUTO 85 % (41-73); Platelet Count 267 K/mm3 (150-400); RDW Coefficient Variation 14.2 % (11.7-14.2); RDW Standard Deviation 40.3 fL (35.1-46.3); Red Blood Cell Count 4.44 M/mm3 (3.80-5.20); White Blood Cell Count 21.66 K/mm3 (4.00-11.30)
[2021-02-02 01:24] LABS: Anion Gap 6 mmol/L (6-16); Blood Urea Nitrogen 18 mg/dL (8-24); Bun/Creatinine Ratio 29.9 (12.0-20.0); CO2, Blood 25 mmol/L (21-32); Calcium, Blood 8.5 mg/dL (8.5-10.1); Chloride, Blood 106 mmol/L (98-108); Glomerular Filtration Rate >60 (60-); Glucose, Blood 99 mg/dL (70-99); Potassium, Blood 3.4 mmol/L (3.5-5.5); Sodium, Blood 137 mmol/L (136-145)
--- NOTE | 2021-02-02 02:14 | NUR ---
3000 UNIT HEPARIN BOLUS GIVEN AND HEPARIN GTT INCREASED TO 20.5 UN/KG/HR (24.6 ML/HR) PER PHARMACY MANAGEMENT.
--- NOTE | 2021-02-02 02:16 | NUR ---
TYLENOL RECIEVED PRN FOR PAIN "EVERYWHERE", AWAITING EFFECT.
--- NOTE | 2021-02-02 03:10 | NUR ---
PT IS CURRENTLY EXPERIENCING VERY HIGH ANXIETY, AGGITATION, FIGITING, RESTLESSNESS, IMPULSIVITY AND FREQUENT NON-ACUTE REQUESTS/COMPLAINTS. HTN PERSISTS LIKELY SECONDARY TO THIS PRESENTATION. MADE AWARE AND ATIVAN 0.5MG PO X1 RX'D AND RECIEVED. WILL MONITOR FOR EFFECT.
--- NOTE | 2021-02-02 03:45 | NUR ---
SUMMARY: PT A/OX3 BUT HAS CONCRETE THINKING, FLIGHTS OF IDEAS AND IS VERY EMOTIONAL AT TIMES. SHE REMAINS HIGHLY ANXIOUS/AGGITATED, RESTLESS, AND IMPULSIVE OOB W/ACCOMPANIED HTN (BP 160'S/100'S). STAFF HAVE MADE FREQUENT AND REPEATED ATTEMPTS TO TEND TO HER VARIOUS NEW COMPLAINTS AND REQUESTS. T/O NOCTE SHE'S BEEN MEDICATED FOR LEG/"EVERYWHERE" PAIN W/SCHEDULED LYRICA, FENTANYL IV PRN AND TYLENOL PRN. SHE'S RECIEVED ZOFRAN PRN FOR C/O NAUSEA AND FEELING "SO SICK". SHE'S REQUESTED SNACKS AND DRINKS TO "SETTLE HER STOMACH" BUT ALSO SAYS SHE "CAN'T EAT/DRINK BECAUSE OF A SORE THROAT". NO ABNORMALITIES TO PT'S THROAT OBSERVED. SHE C/O OF HER SKIN BURNING, ARM SPASMS AND CLAIMED TO HAVE A SEIZURE WHILE STAFF WERE IN ROOM. MOVEMENTS APPEARED VOLUNTARY, SHE WAS CONSCIOUS AND TALKING TO STAFF T/O THIS VERY BRIEF EPISODE AND SHE CALMED WITHIN MOMENTS VIA CONVERSATION, BREATHING EXERCISES AND REASSURANCE. EVERY TIME STAFF ENTER ROOM SHE SEEMS TO HAVE C/O A NEW SYMPTOM. PT HAS DENIED CP THIS SHIFT BUT STATES FENTANYL "MAKES RESTLESS LEGS WORSE". 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 SHE THEN STATED IT WAS DC'D AND SHE "TOOK UP HEROIN INSTEAD". SHE SAYS SHE'S DETOXING AND "THE WITHDRAWAL WILL LAST WEEKS". SHE'S RESTED FOR BRIEF MOMENTS BUT HAS SPENT THE MAJORITY OF SHIFT AWAKE W/HIGH ANXIETY. UPDATED TO ALL OF THE ABOVE W/ATIVAN 0.5MG PO X1 RX'D AND RECIEVED TO ASSESS EFFECT, SO FAR NO RELIEF OBSERVED. BED ALARM REMAINS ON FOR FALL RISK. HEPARIN GTT INFUSES AT 20.5 UN/KG/HR (24.6 ML/HR) PER PHARMACY MANAGEMENT FOR SEPTIC EMBOLISM. IV ABX RECIEVED. WBC'S CONTINUE TO RISE, AWARE. NO ACUTE CHANGES WCTM AND REPORT TO DAY RN.
--- NOTE | 2021-02-02 06:34 | NUR ---
PT WANTING TO LEAVE AMA: PT HAD FINALLY FALLEN ASLEEP AFTER RECIEVING ATIVAN PO X1 BUT AWOKE IRRATIONAL AND DETERMINED TO LEAVE. SHE WAS FOUND PACKING HER BELONGINGS AFTER DC'ING HER OWN IV AND PG AT 0545. BOTH LINES WERE OBSERVED TO BE FULLY INTACT AND DISGUARDED. THIS RN SPENT MUCH TIME W/HER ATTEMPTING TO CONVINCE HER TO STAY, PROVIDING SUPPORT AND LISTENING TO CONCERNS. SHE REPEATEDLY ASKED FOR AMA PAPERWORK DESPITE ATTEMPTS TO CALM AND EXPLAIN BENEFITS VS RISKS OF STAYING/LEAVING. PT STATED "I DON'T CARE IF I AND I HAVE NOTHING TO LIVE FOR ANYWAYS". SHE PROCEEDED TO PROVIDE STAFF W/DETAILED HISTORY OF PAST AND FAMILY ISSUES. SHE INSISTED UPON LEAVING DESPITE KNOWLEGE OF SEPTIC EMBOLISM, NEED FOR ABX, HEPARIN GTT AND RISKS TO TERMINATING MEDICAL CARE ABRUPTLY. ALERTED AND SHE INSTRUCTED STAFF TO ATTEMPT TO ENCOURAGE PT TO STAY FOR 1-2 HOURS FOLLOWING DC'ING HER OWN HEPARIN GTT FOR PT SAFETY. PT HAD BEEN FIXATED ON LYRICA SO AN ADDITIONAL X1 DOSE WAS RX'D. PT STILL WANTED TO LEAVE SO WAS MADE AWARE SHE'D NEED TO ORGANIZE A RIDE AND WALK OUT ON HER OWN. PT ATTEMPTED TO DO SO BUT SUDDENLY REALIZED SHE WAS INCAPABLE OF WALKING ANY DISTANCE. SHE RETURNED TO HER ROOM, REQUESTED MEDICAL CARE ONCE AGAIN, ASKED FOR LYRICA AND PAIN MEDS AND FOR NEW IV ACCESS TO BE STARTED FOR HEPARIN GTT. PT SETTLED INTO BED, LYRICA WAS GIVEN, NEW 20G IV WAS PLACED TO PT'S L.FA AND PRN FENTANYL WAS RECIEVED. PHARMACY WAS CONSULTED REGARDING RESTARTING HEPARIN GTT AND DINA (PHARMACIST) INSTRUCTED TO RESTART IT AT THE PREVIOUS RATE W/O ANY BOLUSES REQUIRED. HEPARIN GTT IS AGAIN INFUSING AT 20.5 UN/KG/HR. PT SETTLED AND SLEEPING W/BED ALARM ON AT THIS TIME.
--- NOTE | 2021-02-02 18:44 | NUR ---
SUMMARY- PT A/O TO SELF AND PLACE, FOLLOWS COMMANDS. UP TO BEDSIDE COMMODE FREQ TO VOID, HAD MULT HARD KETAN EARLY IN THE DAY AND COMPLAINED OF CONSTIPATION. MD ORDERED LAXATIVE AND PT HAD XLG FORMED STOOL, MOVED INTO LOOSE INCONT STOOL IN PM. PT SLEPT MAJORITY OF THE DAY. WHEN AWAKE FREQ RESTLESS AND PAINFUL. C/O LE LEG PAIN, ABD CRAMPING AND CHEST PAIN WITH BREATHING. MEDICATED Q 2-3 HOURS FENT FOR PAIN AND HEROIN ADDICTION. DR SALAZAR IN TO EVAL PT ABOUT 1500. PLAN TO LOOK AT BLOOD CX AND PERFORM ESA IF BACTERIAL LEVELS NOT RESPONDING TO ABX. PT HAD A ASTHMA ATTACK ABOUT 1415, CALLD DR LINO AND ALBUTEROL NEB ORDERED, HELPFUL TO RELEIVE SOB AND WHEEZE. PT'S BP ALSO ELEVATED, HOLLAND ADJUSTED DOSES. TOOK FREQ VITALS RELATED TO HIGH VEWS, BP AND RESPONDED BY 1830, CONT TACHYCARDIA. WILL REPORT TO KENYA LOTT.
[2021-02-02 21:18] LABS: Vancomycin, Trough 6.2 ug/mL (5.0-10.0)
--- NOTE | 2021-02-03 03:41 | NUR ---
SHIFT SUMMARY A/OX3, INCREASINGLY ANXIOUS T/O SHIFT. UNSTEADY GAIT AND IMPULSIVE. SBA TO BSC WITH BED ALARM ON. C/O GENERALIZED PAIN D/T WITHDRAWLS, MEDICATED PER EMAR. PT GIVEN SHOWER THIS SHIFT WITH SOME RELIEF. SEVERAL LOOSE STOOLS AND FREQUENT URINATION NOTED. BED IN LOWEST POSITION WITH CALL LIGHT IN REACH. WILL CONTINUE TO MONITOR AND REPORT TO ONCOMING RN.
[2021-02-03 09:36] LABS: BASOPHILS ABSOLUTE AUTO 0.09 K/mm3 (0.00-0.23); BASOPHILS PERCENT AUTO 1 % (0-2); EOSINOPHILS ABSOLUTE AUTO 0.06 K/mm3 (0.00-0.68); EOSINOPHILS PERCENT AUTO 0 % (0-6); Hematocrit 34.4 % (33.0-51.0); Hemoglobin 11.6 g/dL (11.5-16.0); IMMATURE GRAN ABSOLUTE AUTO 0.91 K/mm3 (0.00-0.10); IMMATURE GRAN PERCENT AUTO 5 % (0-1); LYMPHOCYTES ABSOLUTE AUTO 1.44 K/mm3 (0.84-5.20); LYMPHOCYTES PERCENT AUTO 8 % (21-46); MONOCYTES ABSOLUTE AUTO 0.75 K/mm3 (0.16-1.47); MONOCYTES PERCENT AUTO 4 % (4-13); Mean Corpuscular HGB 26.5 pg (26.0-34.0); Mean Corpuscular HGB Conc 33.7 g/dL (31.5-36.5); Mean Corpuscular Volume 79 fL (80-100); Mean Platelet Volume 10.9 fL (9.1-12.4); NEUTROPHILS ABSOLUTE AUTO 14.01 K/mm3 (1.96-9.15); NEUTROPHILS PERCENT AUTO 81 % (41-73); Platelet Count 294 K/mm3 (150-400); RDW Coefficient Variation 14.7 % (11.7-14.2); RDW Standard Deviation 42.3 fL (35.1-46.3); Red Blood Cell Count 4.38 M/mm3 (3.80-5.20); White Blood Cell Count 17.26 K/mm3 (4.00-11.30)
[2021-02-03 10:02] LABS: Anion Gap 6 mmol/L (6-16); Blood Urea Nitrogen 15 mg/dL (8-24); Bun/Creatinine Ratio 30.4 (12.0-20.0); CO2, Blood 23 mmol/L (21-32); Calcium, Blood 8.3 mg/dL (8.5-10.1); Chloride, Blood 107 mmol/L (98-108); Creatinine, Blood 0.49 mg/dL (0.40-1.00); Glomerular Filtration Rate >60 (60-); Glucose, Blood 164 mg/dL (70-99); Potassium, Blood 3.9 mmol/L (3.5-5.5); Sodium, Blood 136 mmol/L (136-145)
--- NOTE | 2021-02-03 18:30 | NUR ---
SUMMARY- PT ALERT TO SELF AND CIRCUMSTANCES. PERIODS THAT SHE FORGETS WHERE SHE IS/ PERIODS OF AGITATION USUALLY WITH TOO MUCH TIME BETWEEN FENT DOSES. MEDICATED WITH FENTANYL APPROX Q2 FOR GEN BODY ACHE INCLUDING LEGS AND C/O CHEST DISCOMFORT ESPECIALLY WITH DEEP BREATH. LUNGS ARE CLEAR. BREATHING HAS BEEN EVEN UNLABORED. PT TOLERATING FOOD AND FLUIDS, HAS BEEN HAVING DIARRHEA. SENT STOOL CX. INFORMATION GIVEN TO HELP PT SET UP INPATIENT DRUG TREATMENT. OFFERED HELP TO SET UP BUT PT WAS SLEEPY OR AGITATED ALL DAY. SISTER SANGITA CAME TO SEE PT AND BRING CLOTHS. HER HOME PHONE [phone] CL [phone]. WILL REPORT TO KENYA LOTT.
--- NOTE | 2021-02-04 05:15 | NUR ---
SHIFT SUMMARY A/OX3, ANXIOUS AND AGITATED T/O SHIFT. IMPULSIVE AND ATTEMPTING TO WALK AROUND DESPITE UNSTEADY GAIT. WHEN ATTEMPTING TO HELP SAFELY AMBULATE PT BEGAN TO YELL AND THREATEN STAFF. PT PLACED CALL TO 911. REFUSING AM LABS, INCLUDING VANCO TROUGH. PHARMACY NOTIFIED. WILL ATTEMPT TO DRAW LABS AGAIN. CONTINUES TO BE HYPERTENSIVE. C/O GENERALIZED PAIN, IV FENTANYL GIVEN. BED IN LOWEST POSITION, ALARM ON, CALL LIGHT IN REACH. WILL CONTINUE TO MONITOR AND REPORT TO ONCOMING RN.
[2021-02-04 06:41] LABS: Hematocrit 39.2 % (33.0-51.0); Hemoglobin 13.2 g/dL (11.5-16.0); Mean Corpuscular HGB Conc 33.7 g/dL (31.5-36.5); Mean Corpuscular Volume 80 fL (80-100); Mean Platelet Volume 10.3 fL (9.1-12.4); NRBC ABSOLUTE 0.02 K/mm3 (0.00-0.02); NRBC Auto 0.1 /100 WBC (0.0-0.2); Platelet Count 356 K/mm3 (150-400); RDW Coefficient Variation 15.2 % (11.7-14.2); RDW Standard Deviation 44.3 fL (35.1-46.3); Red Blood Cell Count 4.88 M/mm3 (3.80-5.20); White Blood Cell Count 23.06 K/mm3 (4.00-11.30)
[2021-02-04 06:59] LABS: Anion Gap 6 mmol/L (6-16); Blood Urea Nitrogen 12 mg/dL (8-24); Bun/Creatinine Ratio 21.5 (12.0-20.0); CO2, Blood 25 mmol/L (21-32); Calcium, Blood 8.3 mg/dL (8.5-10.1); Chloride, Blood 108 mmol/L (98-108); Creatinine, Blood 0.56 mg/dL (0.40-1.00); Glomerular Filtration Rate >60 (60-); Glucose, Blood 134 mg/dL (70-99); Potassium, Blood 3.9 mmol/L (3.5-5.5); Sodium, Blood 139 mmol/L (136-145); Vancomycin, Trough 11.9 ug/mL (5.0-10.0)
[2021-02-04 07:00] LABS: BASOPHILS ABSOLUTE MAN 0.23 K/mm3 (0.00-0.23); BASOPHILS PERCENT MAN 1 % (0-2); EOSINOPHILS PERCENT MAN 0 % (0-6); LYMPHOCYTES ABSOLUTE MAN 2.99 K/mm3 (0.84-5.20); LYMPHOCYTES PERCENT MAN 13 % (21-46); METAMYELOCYTE ABSOLUTE MAN 0.23 K/mm3 (0.00-0.00); METAMYELOCYTE PERCENT MAN 1 % (0-0); MONOCYTES ABSOLUTE MAN 1.84 K/mm3 (0.16-1.47); MONOCYTES PERCENT MAN 8 % (4-13); NEUTROPHILS ABSOLUTE MAN 17.75 K/mm3 (1.96-9.15); SEG NEUTROPHILS PERCENT MAN 77 % (41-73); TOTAL CELLS COUNTED 100
--- NOTE | 2021-02-04 09:15 | NUR ---
PT GETTING UP SEVERAL TIMES THIS MORNING TO USE COMMODE. HAS HAD LOOSE STOOLS. BECAME ANGRY WHEN TOLD TO HOLD ON A MINUTE TO GET COMMODE CLOSE TO HER ONCE SHE WAS FOUND WALKING BACKWARD AND PULLING HER IV PUMP TO FIND COMMODE. HAS BEEN REFUSING TO TAKE FENTANYL FOR WITHDRAWALS SAYING IT PUTS HER TO SLEEP. KEPT SAYING SHE WOULD BE FINE WITH THE CARE IF SHE COULD GET METHADONE OR GO HOME AND TAKE A HIT. MORNING MEDS BEING GIVEN PT SAID SHE COULDN'T STAY HERE ANYMORE SHE HAD TO LEAVE. DISCUSSED THE BLOOD CULTURE RESULTS COMING BACK THIS AFTERNOON AND BEING PLACED ON CORRECT ANTIBIOTICS TO TREAT HER SEVERE INFECTION WHICH COULD POTENTIALLY KILL HER. SHE SAID SHE DIDN'T CARE IF SHE SHE JUST NEEDS TO GET HER FIX. PULLED HER IV OUT. GOT THE PHONE BOOK AND CALLED A CAB TO COME PICK HER UP. DOESN'T HAVE A LOT OF STAMINA TO MOVE ABOUT IN ROOM LONG PERIODS AND GETS WINDED. CALLED AND NOTIFIED HER OF PT LEAVING AMA. MD CAME TO ROOM AND ATTEMPTED TO DISCUSS RISKS OF LEAVING TOO SOON AND PT SAID SHE WAS LEAVING. MD ORDERED ANTIBIOTIC FOR PT TO LEAVE WITH. CALLED IN TO [facility] PER PT REQUEST. ASKED PT TO WAIT TIL MED CALLED IN AND SHE SAID NO AND WALKED DOWN THE FARRELL TO DOOR. WAITED AT LOCKED DOOR AND THEN SAT ON THE FLOOR. WHEN SOMEONE WENT THROUGH THE DOOR ANOTHER STAFF MEMBER TRIED CLOSING THE DOOR BUT PT SHIMMIED QUICKLY THROUGH THE DOOR CHOOSING TO NOT WAIT FOR PERSCRIPTION. STARTED TO CRAWL DOWN HALLWAY. WHEELCHAIR OFFERED AND PT GOT UP AND GOT IN. SCRIPT HANDED TO HER AFTER BEING CALLED IN TO [facility]. CERTIFIED [employer] IN [facility] [facility] WHEELED PT TO [place] WITH A STOP TO FOR PT TO CALL AND LEAVE HER SISTER A MESSAGE. LEFT SITTING ON BENCH OUTSIDE OF PT ENTRANCE WITH SECURITY NOTIFIED.
[2021-02-05] MEDS ORDERED: PREG75 PO (13:12)
== END 2021-02-04 09:20 | disposition left against medical advice (07) | DRG 175 ==
LOC: ER 19:16 → MEDS 22:03 → PCU 22:03 → ICUE 22:03 → MEDS 02-01 14:40
PROVIDERS: Emergency Medicine; Internal Medicine; ADMIT Family Medicine
PROC: B2111ZZ Fluoroscopy of Multiple Coronary Arteries using Low Osmolar Contrast (ICD-10-PCS; principal; 2021-01-31)
DX: I26.90 Septic pulmonary embolism without acute cor pulmonale (principal); J18.9 Pneumonia, unspecified organism; I30.9 Acute pericarditis, unspecified; R78.81 Bacteremia; E87.1 Hypo-osmolality and hyponatremia; F15.13 Other stimulant abuse with withdrawal; J44.0 Chronic obstructive pulmonary disease with (acute) lower respiratory infection; Z20.822 Contact with and (suspected) exposure to COVID-19; I48.0 Paroxysmal atrial fibrillation; I10 Essential (primary) hypertension; B95.62 Methicillin resistant Staphylococcus aureus infection as the cause of diseases classified elsewhere; F11.10 Opioid abuse, uncomplicated; I25.10 Atherosclerotic heart disease of native coronary artery without angina pectoris; B19.20 Unspecified viral hepatitis C without hepatic coma; F41.9 Anxiety disorder, unspecified; Z98.890 Other specified postprocedural states; Z90.710 Acquired absence of both cervix and uterus; Z88.8 Allergy status to other drugs, medicaments and biological substances; F17.210 Nicotine dependence, cigarettes, uncomplicated; F15.10 Other stimulant abuse, uncomplicated; F12.10 Cannabis abuse, uncomplicated; E87.6 Hypokalemia; F32.9 Major depressive disorder, single episode, unspecified; G62.9 Polyneuropathy, unspecified; Z87.891 Personal history of nicotine dependence
CPT/HCPCS: 36415; 71045; 71260; 80047; 80048; 80053; 80061; 80202; 81001; 83605; 83690; 83735; 83880; 84145; 84443; 84484; 85014; 85025; 85610; 85651; 85730; 86140; 87015; 87040; 87045; 87046; 87077; 87147; 87186; 87205; 87899; 93005; 93010; 93306; 93454; 94640; 94760; 96361; 96365; 96366; 96368; 96375; 96376; 99152; 99285-25; A9270; C1751; C1769; C1894; J0696; J1170; J1644; J2250; J2405; J3010; J3370; J7030; J7050; Q9967; U0004

== ENCOUNTER 2021-02-05 10:59 | Inpatient (IN) | payer MEDICARE ==
[~2021-02-05] VITALS: Ht 162.6 cm; Wt 65.0 kg
[2021-02-05 11:43] LABS: Hematocrit 32.8 % (33.0-51.0); Hemoglobin 11.2 g/dL (11.5-16.0); Mean Corpuscular HGB 26.9 pg (26.0-34.0); Mean Corpuscular HGB Conc 34.1 g/dL (31.5-36.5); Mean Corpuscular Volume 79 fL (80-100); NRBC ABSOLUTE 0.02 K/mm3 (0.00-0.02); NRBC Auto 0.1 /100 WBC (0.0-0.2); Platelet Count 375 K/mm3 (150-400); RDW Coefficient Variation 15.5 % (11.7-14.2); RDW Standard Deviation 43.8 fL (35.1-46.3); Red Blood Cell Count 4.16 M/mm3 (3.80-5.20)
[2021-02-05 12:15] LABS: Albumin, Blood 2.1 g/dL (3.4-5.0); Albumin/Globulin Ratio 0.5 (0.8-1.8); Bilirubin, Total 0.4 mg/dL (0.1-1.0); Bun/Creatinine Ratio 16.1 (12.0-20.0); Calcium, Blood 7.6 mg/dL (8.5-10.1); Creatinine, Blood 2.49 mg/dL (0.40-1.00); Globulin, Blood 4.2 g/dL (2.2-4.0); Potassium, Blood 5.1 mmol/L (3.5-5.5); Total Protein, Blood 6.3 g/dL (6.4-8.2)
[2021-02-05 13:05] LABS: BASOPHILS PERCENT MAN 0 % (0-2); EOSINOPHILS PERCENT MAN 1 % (0-6); LYMPHOCYTES ABSOLUTE MAN 2.74 K/mm3 (0.84-5.20); LYMPHOCYTES PERCENT MAN 9 % (21-46); MONOCYTES ABSOLUTE MAN 1.22 K/mm3 (0.16-1.47); MONOCYTES PERCENT MAN 4 % (4-13); MYELOCYTE PERCENT MAN 1 % (0-0); NEUTROPHILS ABSOLUTE MAN 25.92 K/mm3 (1.96-9.15); SEG NEUTROPHILS PERCENT MAN 85 % (41-73); TOTAL CELLS COUNTED 100
[2021-02-05] MEDS ORDERED: PREG75 PO (13:12)
[2021-02-05 14:50] LABS: International Normalized Ratio 1.03; Prothrombin Time Results 11.1 Sec (9.7-11.5)
--- NOTE | 2021-02-05 17:16 | NUR ---
partial echocardiogram complete
[2021-02-05 18:09] LABS: Salicylate <1.7 mg/dL (2.8-20.0)
[2021-02-05 18:17] LABS: Acetaminophen, Random <2.0 ug/mL (10.0-30.0)
--- NOTE | 2021-02-05 20:07 | NUR ---
PATIENT BECAME EXTREMELY ANXIOUS WITH MD IN ROOM, PULLED OUT IV IN RIGHT HAND, DIFFICULT TO CONSOLE, CHANGED BRIEF DID VITALS AND PATIENT O2 SATS 71% RA, ON 5L NC 90-92%, C/O 6/10 FEELS LIKE KICKED IN THE RIBS, RIGHT LEG DEPENDENT SWELLING, FOOT DUSKY WITH COOL TO TOUCH REPORTS NUMBNESS. RECEIVED NEW ORDERS; POLST OXIMETRY MONITORING CONTINUOUS, CHANGE DILAUDID 1-2MG Q4HRS TO Q2HRS.
--- NOTE | 2021-02-05 21:45 | NUR ---
PATIENT IS CURRENTLY INCONTINENT, UNABLE TO GIVE URINE SAMPLE THAT IS ORDERED, WILL REASSESS THROUGHOUT SHIFT.
--- NOTE | 2021-02-05 23:12 | NUR ---
PATIENT WOKE UP SCREAMING IN PAIN, PRESSURE IN THE LEFT SIDE OF BACK, UPON ASSESSMENT NOTED AYSMETICRICAL BREATHING DECREASING OXYGENATION REQUIRING TO GO FROM 2LNC TO 5LNC, PATIENT FEELS ONLY COMFORTABLE IN TRIPODING POSITION, MD AT BEDSIDE NEW ORDER RECEIVED PORTABLE CHEST XRAY.
[2021-02-06 01:17] LABS: Hematocrit 37.2 % (33.0-51.0); Hemoglobin 12.1 g/dL (11.5-16.0); Mean Corpuscular HGB 26.2 pg (26.0-34.0); Mean Corpuscular HGB Conc 32.5 g/dL (31.5-36.5); Mean Corpuscular Volume 81 fL (80-100); Mean Platelet Volume 9.9 fL (9.1-12.4); NRBC ABSOLUTE 0.02 K/mm3 (0.00-0.02); NRBC Auto 0.1 /100 WBC (0.0-0.2); Platelet Count 436 K/mm3 (150-400); RDW Coefficient Variation 15.9 % (11.7-14.2); RDW Standard Deviation 46.5 fL (35.1-46.3); Red Blood Cell Count 4.61 M/mm3 (3.80-5.20); White Blood Cell Count 36.37 K/mm3 (4.00-11.30)
[2021-02-06 01:53] LABS: BAND PERCENT MAN 3 % (0-8); BASOPHILS PERCENT MAN 0 % (0-2); EOSINOPHILS ABSOLUTE MAN 0.36 K/mm3 (0.00-0.68); EOSINOPHILS PERCENT MAN 1 % (0-6); LYMPHOCYTES PERCENT MAN 8 % (21-46); METAMYELOCYTE ABSOLUTE MAN 0.36 K/mm3 (0.00-0.00); METAMYELOCYTE PERCENT MAN 1 % (0-0); MONOCYTES ABSOLUTE MAN 3.63 K/mm3 (0.16-1.47); MONOCYTES PERCENT MAN 10 % (4-13); MYELOCYTE ABSOLUTE MAN 1.09 K/mm3 (0.00-0.00); MYELOCYTE PERCENT MAN 3 % (0-0); SEG NEUTROPHILS PERCENT MAN 74 % (41-73); TOTAL CELLS COUNTED 100
[2021-02-06 01:59] LABS: Alanine Aminotransfer (ALT/SGP 67 U/L (12-78); Albumin, Blood 2.2 g/dL (3.4-5.0); Albumin/Globulin Ratio 0.4 (0.8-1.8); Alk Phos 266 U/L (50-136); Anion Gap 11 mmol/L (6-16); Aspartate Aminotrans (AST/SGOT 140 U/L (12-37); Bilirubin, Total 0.6 mg/dL (0.1-1.0); Blood Urea Nitrogen 48 mg/dL (8-24); Bun/Creatinine Ratio 14.6 (12.0-20.0); CO2, Blood 18 mmol/L (21-32); Calcium, Blood 7.7 mg/dL (8.5-10.1); Chloride, Blood 101 mmol/L (98-108); Creatinine, Blood 3.29 mg/dL (0.40-1.00); Glomerular Filtration Rate 14 (60-); Glucose, Blood 140 mg/dL (70-99); Potassium, Blood 6.1 mmol/L (3.5-5.5); Sodium, Blood 130 mmol/L (136-145); Total Protein, Blood 7.2 g/dL (6.4-8.2); Vancomycin, Random 31.1 ug/mL
--- NOTE | 2021-02-06 05:28 | NUR ---
PATIENT IS MORE COMFORTABLE NOTED GETTING DILAUDID 1MG Q2, LESS ANXIOUS AND FOLLOWS COMMANDS, STILL REQUIRING 5L NC, AT 0203 RECEIVED CRITICAL K+ 6.1 RECEIVED NEW ORDERS AND IMPLEMENTED, WILL RECHECK CMP AT 0650, 4HRS AFTER INSULIN, CALCIUM GLUCONATE, AND D50W PUSH. PATIENT HAD INCONTINENT EPISODE, BED CHANGE, PARITAL BATH AND LINEN CHANGED, CALL LIGHT WITHIN REACH.
--- NOTE | 2021-02-06 06:38 | NUR ---
PATIENT STARTED COMPLANING OF MORE BACK PAIN EARLIER THIS EVENING PRIOR TO OBTAINING PORTABLE CHEST XRAY AND DRY HEAVING, RECEIVED NEW ORDER OF ZOFRAN 4MG IVP Q6 PRN.
[2021-02-06 09:08] LABS: Albumin, Blood 2.2 g/dL (3.4-5.0); Albumin/Globulin Ratio 0.4 (0.8-1.8); Bilirubin, Total 0.7 mg/dL (0.1-1.0); Bun/Creatinine Ratio 14.8 (12.0-20.0); Calcium, Blood 7.9 mg/dL (8.5-10.1); Creatinine, Blood 3.58 mg/dL (0.40-1.00); Globulin, Blood 5.3 g/dL (2.2-4.0); Total Protein, Blood 7.5 g/dL (6.4-8.2)
[2021-02-06 09:11] LABS: Potassium, Blood 6.5 mmol/L (3.5-5.5)
[2021-02-06 15:06] LABS: Appearance, Urine Cloudy (Clear); Bilirubin, Urine Neg (Neg); Blood, Urine 5+ (Neg); Color, Urine Yellow (P-Yellow); Glucose Qualitative, Urine 1+ (Neg); Ketones, Urine Neg (Neg); Leukocyte Esterase, Urine 3+ (Neg); Nitrite, Urine Neg (Neg); Protein, Urine 3+ (Neg); Specific Gravity, Urine 1.025 (1.003-1.022); Urobilinogen, Urine NORM (Normal)
[2021-02-06 15:19] LABS: U Amphetamine Screen DETECTED; U Benzodiazapine Screen DETECTED; U Methadone Screen DETECTED; U Methamphetamine Screen DETECTED; U Opiates Screen DETECTED
[2021-02-06 15:20] LABS: U Barbituate Screen Not Detected; U Buprenorphine Screen Not Detected; U Cannabinoids Screen Not Detected; U Cocaine Screen Not Detected; U Oxycodone Screen Not Detected; U Phencyclidine Screen Not Detected; U Propoxyphene Screen Not Detected
[2021-02-06 15:23] LABS: Amorphous Mod (0-Heavy); Bacteria Mod /hpf; Squamous Epithelial Cells Few /hpf (Few); White Blood Cells, Urine 50-100 /hpf (0-5)
[2021-02-06 15:24] LABS: WBC Cast 0-2 /lpf (0)
[2021-02-06 16:08] LABS: Albumin, Blood 1.9 g/dL (3.4-5.0); Anion Gap 11 mmol/L (6-16); Blood Urea Nitrogen 60 mg/dL (8-24); Bun/Creatinine Ratio 15.1 (12.0-20.0); CO2, Blood 17 mmol/L (21-32); Calcium, Blood 7.4 mg/dL (8.5-10.1); Chloride, Blood 99 mmol/L (98-108); Creatinine, Blood 3.98 mg/dL (0.40-1.00); Glomerular Filtration Rate 11 (60-); Glucose, Blood 133 mg/dL (70-99); Phosphorus, Blood 9.6 mg/dL (2.5-4.9); Potassium, Blood 6.7 mmol/L (3.5-5.5); Sodium, Blood 127 mmol/L (136-145)
--- NOTE | 2021-02-06 18:10 | NUR ---
PT'S POTASSIUM HAS BEEN A CONTINUOUS ISSUE T/O THIS SHIFT, DESPITE TREATMENT LAST NOC AND THIS AM FOR HYPERKALEMIA. PT DID RECIEVE 1L NS BOLUS FOR ELEVATED LACTIC ACID WHICH HAS NOW FELL TO 2.7, WITH NS INFUSING AT 100ML/HR FOR FLUID SUPPORT. PT IS A/O X3 ANSWERS MOST QUESTIONS APPROPRIATELY BUT THEN ALSO BECOMES AGGITATED AND AGGRESSIVE EASILY. THIS AM PT WAS THREATENING TO LEAVE "BECAUSE OF FUCKING BEEPING AND I JUST WANT TO SLEEP AND I KEEP BEING BOTHERED" STS SHE IS "SIGNING OUT" PT IS REMINDED THAT SHE BECAME MORE SICK AFTER SIGNING OUT AMA EARLIER THIS WEEK, PT EUDCATED THAT WITH HER CURRENT STATUS SHE WILL LIKELY NOT SURVIVE AT HOME IF SHE WERE TO CHECK OUT NOW, PT AGREES THAT THE BEST COURSE WOULD BE NOT TO CHECK OUT. PT'S PERIPHERAL IV'S FAILED THIS MORNING AND NEW IV WAS PLACED BY STEVE LOTT AND POWERGLIDE PLACED. PT WITH DISPORPORTIONATE PAIN RELATED TO NEWLY PLACED IV WHICH PT BEGAN PULLING ON AND SCREAMING AND CURSING, THE IV HAD GOOD DRAW AND FLUSH APPEARS TO BE PATENT UPON INSPECTION, THE IV WAS REMOVED PT WAS ATTEMPTING TO PULL IT FRO HER ARM, PRESSURE DRESSING APPLIED WHICH PT STS "THIS WRAP IS GOING TO KILL ME" SHE REMOVES THE WRAP TO DISCOVER THAT THE SITE WILL BLEED WITHOUT WRAP SHE THEN WAS AGREEABLE TO ALLOW WRAP TO STAY IN PLACE UNTIL BLEEDING STOPS. ANOTHER NEW IV WAS PLACED IN PT'S RT UPPER CHEST WALL WHICH ALSO APPEARS PATENT. PT STS THAT THIS RN IS "A WORTHLESS FUCK", FOR DRESSING HER IV AND STARTING THE NEW IV, PT'S BEHAVIOR IS ADDRESSED AND REMINDED THAT VERBAL ASSUALTS WILL NOT BE TOLERATED PT STS "WELL I'M SICK". SINCE THAT EVENT PT IS COOPERATIVE. CURRENTLY D50 INFUSING, NS, AND INSULIN HAS BEEN ADMINISTERED FOR HYPERKALEMIA ONCE D50 IS FINISHED CA GLUCONATE WILL BE STARTED.
[2021-02-06 23:09] LABS: Source, Urine Catheter
[2021-02-06 23:12] LABS: Bilirubin, Urine Neg (Neg); Blood, Urine 5+ (Neg); Glucose Qualitative, Urine Neg (Neg); Ketones, Urine Neg (Neg); Leukocyte Esterase, Urine 3+ (Neg); Nitrite, Urine Neg (Neg); Protein, Urine 2+ (Neg); Specific Gravity, Urine 1.015 (1.003-1.022); Urobilinogen, Urine NORM (Normal)
[2021-02-06 23:18] LABS: Anion Gap 11 mmol/L (6-16); Blood Urea Nitrogen 63 mg/dL (8-24); Bun/Creatinine Ratio 15.4 (12.0-20.0); CO2, Blood 22 mmol/L (21-32); Chloride, Blood 95 mmol/L (98-108); Glomerular Filtration Rate 11 (60-); Glucose, Blood 175 mg/dL (70-99); Potassium, Blood 5.7 mmol/L (3.5-5.5); Sodium, Blood 128 mmol/L (136-145)
[2021-02-06 23:19] LABS: Phosphorus, Blood 8.9 mg/dL (2.5-4.9)
[2021-02-06 23:21] LABS: Appearance, Urine Cloudy (Clear); Color, Urine Yellow (P-Yellow)
[2021-02-06 23:22] LABS: Amorphous Heavy (0-Heavy); Bacteria Mod /hpf; Squamous Epithelial Cells Few /hpf (Few); White Blood Cells, Urine 50-100 /hpf (0-5)
--- NOTE | 2021-02-07 00:41 | NUR ---
PATIENT IS ALERT AND ORIENTED X4, ANXIOUS AND AGITATED BUT COOPERATIVE WITH CARE. COMPLAINS OF GENERALZED PAIN, MEDICATED PER EMAR. PATIENT ON 9L VIA NC AT BEGINNING OF SHIFT 02 SATS 100%, PT TITRATED DOWN TO 5L 02 SATS 95%. CONFIRMED MEDICATION ORDER OF BICARB BOLUS WITH PHARMACY. DURON DRAINING TO GRAVITY. PATIENT SR-ST @100-120, THEN CONVERTED TO A. FIB 110-120s. PATIENT IS CURRENTLY SLEEPING. VSS. CALL LIGHT IN REACH.
--- NOTE | 2021-02-07 01:20 | NUR ---
ASSUMED CARE RECEIVED REPORT FROM TRISTON LOTT AND ASSUMED CARE. PT IS RESTING IN BED WITH EYES CLOSED, NO ACUTE DISTRESS. WILL CONTINUE PLAN OF CARE.
[2021-02-07 05:32] LABS: Hematocrit 29.8 % (33.0-51.0); Hemoglobin 10.3 g/dL (11.5-16.0); Mean Corpuscular HGB 27.2 pg (26.0-34.0); Mean Corpuscular HGB Conc 34.6 g/dL (31.5-36.5); Mean Corpuscular Volume 79 fL (80-100); NRBC ABSOLUTE 0.03 K/mm3 (0.00-0.02); NRBC Auto 0.1 /100 WBC (0.0-0.2); RDW Coefficient Variation 15.2 % (11.7-14.2); RDW Standard Deviation 43.1 fL (35.1-46.3); Red Blood Cell Count 3.79 M/mm3 (3.80-5.20)
[2021-02-07 05:39] LABS: Mean Platelet Volume 10.7 fL (9.1-12.4); Platelet Count 158 K/mm3 (150-400)
[2021-02-07 05:49] LABS: BAND PERCENT MAN 4 % (0-8); BASOPHILS PERCENT MAN 0 % (0-2); EOSINOPHILS PERCENT MAN 0 % (0-6); LYMPHOCYTES % ATYPICAL MANUAL 2 % (0-0); LYMPHOCYTES ABSOLUTE MAN 2.76 K/mm3 (0.84-5.20); LYMPHOCYTES PERCENT MAN 9 % (21-46); METAMYELOCYTE ABSOLUTE MAN 0.25 K/mm3 (0.00-0.00); METAMYELOCYTE PERCENT MAN 1 % (0-0); MONOCYTES PERCENT MAN 6 % (4-13); NEUTROPHILS ABSOLUTE MAN 20.58 K/mm3 (1.96-9.15); SEG NEUTROPHILS PERCENT MAN 78 % (41-73); TOTAL CELLS COUNTED 100
[2021-02-07 07:09] LABS: COMPLEMENT C3, SERUM 100 mg/dL (82-167); COMPLEMENT C4, SERUM 12 mg/dL (12-38)
[2021-02-07 07:10] LABS: Alanine Aminotransfer (ALT/SGP 1646 U/L (12-78); Albumin, Blood 1.9 g/dL (3.4-5.0); Albumin/Globulin Ratio 0.5 (0.8-1.8); Alk Phos 238 U/L (50-136); Aspartate Aminotrans (AST/SGOT 2105 U/L (12-37); Bilirubin, Direct 0.2 mg/dL (0.0-0.3); Bilirubin, Indirect 0.3 mg/dL (0.1-0.7); Bilirubin, Total 0.5 mg/dL (0.1-1.0); Globulin, Blood 3.7 g/dL (2.2-4.0); Total Protein, Blood 5.6 g/dL (6.4-8.2); Vancomycin, Random 19.3 ug/mL
[2021-02-07 10:06] LABS: Albumin, Blood 1.9 g/dL (3.4-5.0); Anion Gap 15 mmol/L (6-16); Blood Urea Nitrogen 65 mg/dL (8-24); Bun/Creatinine Ratio 16.5 (12.0-20.0); CO2, Blood 20 mmol/L (21-32); Calcium, Blood 6.4 mg/dL (8.5-10.1); Chloride, Blood 95 mmol/L (98-108); Creatinine, Blood 3.95 mg/dL (0.40-1.00); Glomerular Filtration Rate 11 (60-); Glucose, Blood 127 mg/dL (70-99); Potassium, Blood 6.1 mmol/L (3.5-5.5); Sodium, Blood 130 mmol/L (136-145)
[2021-02-07 10:32] LABS: Phosphorus, Blood >9.0 mg/dL (2.5-4.9)
[2021-02-07 15:50] LABS: Albumin, Blood 1.8 g/dL (3.4-5.0); Anion Gap 13 mmol/L (6-16); Blood Urea Nitrogen 67 mg/dL (8-24); Bun/Creatinine Ratio 17.7 (12.0-20.0); CO2, Blood 22 mmol/L (21-32); Calcium, Blood 6.3 mg/dL (8.5-10.1); Chloride, Blood 95 mmol/L (98-108); Creatinine, Blood 3.78 mg/dL (0.40-1.00); Glomerular Filtration Rate 12 (60-); Glucose, Blood 111 mg/dL (70-99); Phosphorus, Blood 8.4 mg/dL (2.5-4.9); Potassium, Blood 5.3 mmol/L (3.5-5.5); Sodium, Blood 130 mmol/L (136-145)
[2021-02-07 17:49] LABS: PCO2 Arterial 35.5 mmHg (35-45); PO2 Arterial 50.3 mmHg (80-100); pH Blood Arterial 7.43 (7.35-7.45)
--- NOTE | 2021-02-07 18:15 | NUR ---
PT'S POTASSIUM HAS DECREASED T/O THIS SHIFT WITH THE ADDITION OF NA BICARB. PT'S LIVER ENZYMES HAVE GREATLY INCREASED TODAY. PT'S pO2 FROM ABG READS AT 50% DESPITE AN SPO2 READING OF 92-93% BY BOTH THIS RN AND RT LIBORIO T/O THE DAY. PHOSPHORUS IS SLOWLY DECREASING. PT HAS BEEN ALERT, ORIENTED X3, EASILY AGITATED, BECOMES VERBALLY AGGRESSIVE WITH PCT TODAY. PT WITH LARGE URINE OUTPUT TODAY, DURON REMAINS DRAINING TO GRAVITY. PT HAS BEEN REFUSING FOOD TRAY THEN DEMANDS ADDITIONAL FOOD. PT PARANOID STS THAT SISTER HAS CALLED ADMINISTRATION AND BLOCKED HER PHONE USAGE, DESPITE PT USING HER PHONE T/O THE DAY. PT HAS BEEN PLACED ON 7L O2 VIA NASAL CANNULA TO TITRATE UP OXYGEN.
[2021-02-08 05:17] LABS: Hematocrit 28.8 % (33.0-51.0); Hemoglobin 10.1 g/dL (11.5-16.0); Mean Corpuscular HGB 26.4 pg (26.0-34.0); Mean Corpuscular HGB Conc 35.1 g/dL (31.5-36.5); Mean Corpuscular Volume 75 fL (80-100); Mean Platelet Volume 10.2 fL (9.1-12.4); Platelet Count 350 K/mm3 (150-400); RDW Coefficient Variation 14.6 % (11.7-14.2); RDW Standard Deviation 39.6 fL (35.1-46.3); Red Blood Cell Count 3.82 M/mm3 (3.80-5.20); White Blood Cell Count 24.15 K/mm3 (4.00-11.30)
--- NOTE | 2021-02-08 05:36 | NUR ---
SHIFT SUMMARY PATIENT IS ALERT AND ORIENTED X4 AGITATED AT TIMES BUT MOSTLY COOPERATIVE. 02 SATS >95% ON 7L VIA NC, PATIENT NEEDS REMINDER TO KEEP NC IN HER NOSE. DENIES CP/PRESSURE. PATIENT COMPLAINING OF LOWER ABDOMINAL PAIN, AFTER HAVING LARGE BOWEL MOVEMENT PATIENT STATED SHE FELT MUCH BETTER AND SLEPT MOST THE NIGHT. INDEPENDENT WITH REPOSITONING. DURON DRAINING TO GRAVITY. BED ALARM ON AND CALL LIGHT IN REACH.
[2021-02-08 05:44] LABS: Albumin, Blood 1.6 g/dL (3.4-5.0); Albumin/Globulin Ratio 0.4 (0.8-1.8); Bilirubin, Total 0.4 mg/dL (0.1-1.0); Bun/Creatinine Ratio 17.1 (12.0-20.0); Calcium, Blood 5.8 mg/dL (8.5-10.1); Creatinine, Blood 3.56 mg/dL (0.40-1.00); Phosphorus, Blood 8.3 mg/dL (2.5-4.9); Potassium, Blood 4.5 mmol/L (3.5-5.5); Total Protein, Blood 5.6 g/dL (6.4-8.2)
[2021-02-08 05:55] LABS: PCO2 Arterial 40.7 mmHg (35-45); pH Blood Arterial 7.49 (7.35-7.45)
[2021-02-08 14:37] LABS: Vancomycin, Random 22.9 ug/mL
--- NOTE | 2021-02-08 20:11 | NUR ---
PT REPORTED SEVERE BILATERAL FOOT PAIN AND HAD 2 RUNS OF VTACH, (9 AND 7, RESPECTIVELY) WHICH WAS CALLED TO DR. CHRISTOPHER AT 1216 ALONG WITH CA AND PHOS RESULTS, ORDER PROVIDED TO DRAW IONIZED CALCIUM LEVEL, HEPARIN GTT STEADY AT 27, PTT THERAPEUTIC AT 55, PT HAD CT CHEST (LEFT 1420 VIA WHEELCHAIR WITH RN X2 ACCOMPANYING; PT LEFT ON 7LO2 VIA NC, HEPARIN GTT THERAPY, AND TELEMETRY MONITORING, AND RETURNED TO ROOM AT 1446, BICARB DRIP CHANGED TO NS AT 75ML/HR AT 1100, PT ASKED KAYLIE JENSEN TO DISPOSE OF HER NICOTINE PATCH RXS IN BOXES FOR HER, PATCHES DISPOSED OF IN BLACK BOX, RN LEFT MESSAGE FOR DR. CHRISTOPHER FOLLOWING UP ABOUT IONIZED CALCIUM RESULTS AT 1456, PT RECEIVED ACETAM 1X FOR FOOT PAIN, PT DENIES ADDITIONAL CONCERNS AT THIS TIME
[2021-02-09 05:39] LABS: Albumin, Blood 1.5 g/dL (3.4-5.0); Anion Gap 7 mmol/L (6-16); Blood Urea Nitrogen 58 mg/dL (8-24); Bun/Creatinine Ratio 21.5 (12.0-20.0); CO2, Blood 33 mmol/L (21-32); Calcium, Blood 6.2 mg/dL (8.5-10.1); Chloride, Blood 95 mmol/L (98-108); Glomerular Filtration Rate 18 (60-); Glucose, Blood 109 mg/dL (70-99); Phosphorus, Blood 6.7 mg/dL (2.5-4.9); Potassium, Blood 3.8 mmol/L (3.5-5.5); Sodium, Blood 135 mmol/L (136-145); Vancomycin, Random 18.4 ug/mL
--- NOTE | 2021-02-09 06:35 | NUR ---
SHIFT SUMMARY: LIBORIO IS A&OX4. BP ELEVATED THIS AM WELL PT'S LEVEL OF ANXIETY. DOMI BASS, TOLERATING PO INTAKE WELL, REPORTS SEVERE PAIN IN FEET. SHE DOES STATE THAT AT HOME SHE SOAKS HER FEET IN HOT WATER AND EPSOM SALTS WHICH HELPS TO ALLEVIATE THE PAIN AND SWELLING. POWERGLIDE AND PIV PATENT TO RIGHT UPPER ARM. BED ALARM ON FOR SAFETY PT FORGETS TO CALL FOR ASSISTANCE. SHE REPORTS ADEQUATE PAIN CONTROL WITH 1 MG OF DILAUDID. SHE IS LYING IN BED WITH THE CALL LIGHT IN REACH. WILL REPORT TO DAY SHIFT RN.
--- NOTE | 2021-02-09 10:32 | NUR ---
PT ALERT AND ORIENTED X4. SLOW TO RESPOND AT TIMES. PUPILS EQUAL, ROUND, AND REACTIVE. NEURO WNL. ON ROOM AIR SATING ABOVE 94%. DENIES SOB. TELE SHOWING AFIB WITH HR 120-130'S THIS AM. TWO RUNS OF VTACH. DR. CHRISTOPHER AWARE, METOPROLOL INCREASED. CARDIOLOGY ON BOARD. BOWEL TONES PRESENT. PT COMPLAINS OF CONSTIPATION, BOWEL CARE MEDS ORDERED. COMPLAINS OF PAIN EVERYWHERE. PATIENT STATES HER PAIN GETS WORSE WHEN SHE IS GOING THROUGH WITHDRAWL. EATING AND DRINKING WELL. DURON CATH IN PLACE DRAINING CLEAR/YELLOW URINE TO GRAVITY. HEPARIN DRIP INFUSING. CALCIUM AND VANCOMYCIN INFUSED THIS AM. CALL LIGHT IN REACH. PATIENT SLEEPING AT THIS TIME. WILL CONTINUE TO MONITOR.
[2021-02-09 14:14] LABS: PCO2 Arterial 43.8 mmHg (35-45); PO2 Arterial 74.9 mmHg (80-100); pH Blood Arterial 7.47 (7.35-7.45)
--- NOTE | 2021-02-09 18:41 | NUR ---
SHIFT SUMMARY: NO ACUTE CHANGES. HR TRENDING DOWN 90-110'S. DENIES CHEST PAIN/PRESSURE. COMPLAINS OF PAIN SCATTERED THROUGHOUT BODY, RELIEVED BY REST AND REPOSITIONING. VITAL SIGNS REMAIN STABLE. CALL LIGHT IN REACH. PATIENT SLEEPING AT THIS TIME. WILL REPORT OFF TO ONCOMING NURSE.
--- NOTE | 2021-02-10 05:18 | NUR ---
SHIFT SUMMARY ASSUMED CARE OF PT AT 1900. PT IS A/OX4 WITH TIMES OF CONFUSION. PT DID NOT KNOW WHERE SHE WAS WHEN SHE WOKE UP AT SHIFT CHANGE. PT C/O BURNING SENSATION IN HER FEET. HEART SOUNDS IRREGULAR, TELE SHOWS AFIB, LUNG SOUNDS CLEAR. PT C/O PAIN IN HER NAE AREA DUE TO THE DURON CATHETER AND BECAME VERY ANXIOUS, CATHETER WAS TAKEN OUT DUE TO PT DISCOMFORT. PT VOIDS FINE, URINE CLEAR AND YELLOW. PT C/O NEASEA, MEDICATED PER EMAR WITHOUT SUCCESS, PT AT SNACKS T/O THE NIGHT, SAYING THAT THEY MAKE HERSTOMACH FEEL BETTER. PT HAS A SMALL SORE ON THE INSIDE OF HER LIP. PT IS INDEPENDNT TO BSC. PT STATES THAT SHE IS ON DAY 4 AFTER TAKING HEROIN AND SHE HOPES TO STAY OFF IF IT AND GO TO [facility] WHEN SHE GETS OUT. PT ASKED FOR NICOTINE GUM TWICE. CALL LIGHT IN REACH, BED IN LOWEST POSTION.
[2021-02-10 06:01] LABS: Hematocrit 30.1 % (33.0-51.0); Hemoglobin 9.9 g/dL (11.5-16.0); Mean Corpuscular HGB 25.9 pg (26.0-34.0); Mean Corpuscular HGB Conc 32.9 g/dL (31.5-36.5); Mean Corpuscular Volume 79 fL (80-100); Mean Platelet Volume 9.6 fL (9.1-12.4); Platelet Count 441 K/mm3 (150-400); RDW Coefficient Variation 15.1 % (11.7-14.2); RDW Standard Deviation 42.8 fL (35.1-46.3); Red Blood Cell Count 3.82 M/mm3 (3.80-5.20)
[2021-02-10 06:19] LABS: Alanine Aminotransfer (ALT/SGP 501 U/L (12-78); Albumin, Blood 1.7 g/dL (3.4-5.0); Albumin/Globulin Ratio 0.4 (0.8-1.8); Alk Phos 187 U/L (50-136); Anion Gap 7 mmol/L (6-16); Aspartate Aminotrans (AST/SGOT 125 U/L (12-37); Bilirubin, Direct 0.2 mg/dL (0.0-0.3); Bilirubin, Indirect 0.4 mg/dL (0.1-0.7); Bilirubin, Total 0.6 mg/dL (0.1-1.0); Blood Urea Nitrogen 45 mg/dL (8-24); Bun/Creatinine Ratio 24.1 (12.0-20.0); CO2, Blood 30 mmol/L (21-32); Calcium, Blood 7.4 mg/dL (8.5-10.1); Chloride, Blood 97 mmol/L (98-108); Creatinine, Blood 1.87 mg/dL (0.40-1.00); Globulin, Blood 4.6 g/dL (2.2-4.0); Glomerular Filtration Rate 27 (60-); Glucose, Blood 123 mg/dL (70-99); Magnesium, Blood 1.6 mg/dL (1.6-2.4); Phosphorus, Blood 4.2 mg/dL (2.5-4.9); Potassium, Blood 3.8 mmol/L (3.5-5.5); Sodium, Blood 134 mmol/L (136-145); Total Protein, Blood 6.3 g/dL (6.4-8.2); Vancomycin, Random 17.2 ug/mL
--- NOTE | 2021-02-10 13:30 | NUR ---
PT TRANSFERRED TO 348 REPORT GIVEN TO JOHNSON LOTT, PT ACCOMPANIED BY PCT VIA WHEELCHAIR ALL BELONGINGS SENT WITH THE PT. PT REMAINS ALERT AND ORIENTED GETS CONFUSED AT TIMES, IRRITABLE, C/O ABD PAIN R/T HEROINE WITHDRAWAL PT TAKES METHADONE 5MG PT RESTED AFTER AM DOSE. PT CONTINUES ON HEPARIN GTT INCREASED TO 31U/KG/HR. VITALS HR REMAINED AFIB RATE 90-110'S BETA BLOCKERS Q6HRS. PT GETS ANXIOUS OFTEN WAS GIVEN FOOD PER REQUESTS. NO OTHER ISSUES ENCOUNTERED.
--- NOTE | 2021-02-10 17:09 | NUR ---
1326 PT TRANSFERED FROM PCU TO RM 341. A&OX3, INDEPNENDENT TO BSC. PT WITH ABD CRAMPING AND NAUSEA SECONDARY TO D/T'S, PRN ZOFRAN GIVEN WITH GOOD EFFECT. HEPARIN GTT D/C'D, XARELTO GIFÉLIXEN AT THAT TIME. NO OTHER CHANGES OR CONCERNS.
--- NOTE | 2021-02-11 04:52 | NUR ---
SHIFT SUMMARY: PT IS ALERT AND ORIENTED. PT IS ANXIOUS BUT COOPERATIVE WITH CARE. PT CALLS APPROPRIATELY. PT IS INDEPENDENT TO THE BSC. PT REPORTS GENERALIZED PAIN, GAVE SCHEDULED METHADONE. PT DENIES NAUSEA, VOMITING, AND SOB. PT SLEPT MUCH OF THE NIGHT WHEN NOT DISTURBED. NO ACUTE CHANGES OR COMPLICATIONS THIS SHIFT. BED IN LOW POSITION, CALL LIGHT WITHIN REACH. WILL CONTINUE TO MONITOR AND REPORT TO DAY NURSE.
[2021-02-11 06:10] LABS: Hematocrit 31.2 % (33.0-51.0); Hemoglobin 10.3 g/dL (11.5-16.0); Mean Corpuscular HGB 26.3 pg (26.0-34.0); Mean Corpuscular Volume 80 fL (80-100); Mean Platelet Volume 9.6 fL (9.1-12.4); Platelet Count 442 K/mm3 (150-400); RDW Coefficient Variation 15.4 % (11.7-14.2); RDW Standard Deviation 44.1 fL (35.1-46.3); Red Blood Cell Count 3.91 M/mm3 (3.80-5.20); White Blood Cell Count 27.42 K/mm3 (4.00-11.30)
[2021-02-11 06:28] LABS: Albumin, Blood 1.7 g/dL (3.4-5.0); Anion Gap 6 mmol/L (6-16); Blood Urea Nitrogen 32 mg/dL (8-24); Bun/Creatinine Ratio 21.6 (12.0-20.0); CO2, Blood 29 mmol/L (21-32); Calcium, Blood 7.8 mg/dL (8.5-10.1); Chloride, Blood 99 mmol/L (98-108); Creatinine, Blood 1.48 mg/dL (0.40-1.00); Glomerular Filtration Rate 35 (60-); Glucose, Blood 117 mg/dL (70-99); Phosphorus, Blood 3.1 mg/dL (2.5-4.9); Potassium, Blood 3.5 mmol/L (3.5-5.5); Sodium, Blood 134 mmol/L (136-145); Vancomycin, Random 14.4 ug/mL
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
--- NOTE | 2021-02-12 02:57 | NUR ---
TOOK PT SOMETHING TO DRINK. HELPED HER PUT HER SHEET ON. BED ALARM ON.
--- NOTE | 2021-02-12 04:20 | NUR ---
SHIFT SUMMARY: ALERT AND ORIENTED. CONTINUES TO COMPLAINT OF ABDOMINAL PAIN. TOLERATED SNACKS WELL DURING SHIFT. RESTED WELL OFF AND ON. AGITATED AND WHINY WHEN AWAKE AND THEN WOULD FALL BACK TO SLEEP WITHOUT DIFFICULTY. MEDICATED WITH TYLENOL FOR HEADACHE AND GENERALIZED ACHES AND PAIN. A COUPLE OF ANGRY OUTBURSTS WHEN PT WOULD SET OFF BED ALARM. PT DID REMEMBER TO USE CALL LT LATER IN SHIFT. HR HAS BEEN AFIB IN ONE TEENS AND LOW ONE HUNDREDS, GETS SCHEDULED METOPROLOL FOR HR CONTROL. HAD A 6 BEAT RUN OF VTACH LAST NIGHT, ASYMPTOMATIC, DR DURING DAYSHIFT AWARE. NO ACUTE CHANGES. WILL CONTINUE TO PROVIDE CARE UNTIL SHIFT REPORT.
[2021-02-12 06:04] LABS: BASOPHILS ABSOLUTE AUTO 0.07 K/mm3 (0.00-0.23); BASOPHILS PERCENT AUTO 0 % (0-2); EOSINOPHILS ABSOLUTE AUTO 0.07 K/mm3 (0.00-0.68); EOSINOPHILS PERCENT AUTO 0 % (0-6); Hematocrit 30.1 % (33.0-51.0); Hemoglobin 9.9 g/dL (11.5-16.0); IMMATURE GRAN ABSOLUTE AUTO 0.36 K/mm3 (0.00-0.10); IMMATURE GRAN PERCENT AUTO 1 % (0-1); LYMPHOCYTES ABSOLUTE AUTO 2.17 K/mm3 (0.84-5.20); LYMPHOCYTES PERCENT AUTO 9 % (21-46); MONOCYTES ABSOLUTE AUTO 2.09 K/mm3 (0.16-1.47); MONOCYTES PERCENT AUTO 8 % (4-13); Mean Corpuscular HGB 26.1 pg (26.0-34.0); Mean Corpuscular HGB Conc 32.9 g/dL (31.5-36.5); Mean Corpuscular Volume 79 fL (80-100); Mean Platelet Volume 9.5 fL (9.1-12.4); NEUTROPHILS ABSOLUTE AUTO 20.53 K/mm3 (1.96-9.15); NEUTROPHILS PERCENT AUTO 81 % (41-73); Platelet Count 483 K/mm3 (150-400); RDW Coefficient Variation 15.6 % (11.7-14.2); RDW Standard Deviation 44.4 fL (35.1-46.3); Red Blood Cell Count 3.79 M/mm3 (3.80-5.20); White Blood Cell Count 25.29 K/mm3 (4.00-11.30)
[2021-02-12 06:27] LABS: Albumin, Blood 1.6 g/dL (3.4-5.0); Albumin/Globulin Ratio 0.3 (0.8-1.8); Bilirubin, Total 0.4 mg/dL (0.1-1.0); Bun/Creatinine Ratio 21.9 (12.0-20.0); Calcium, Blood 7.9 mg/dL (8.5-10.1); Creatinine, Blood 1.28 mg/dL (0.40-1.00); Globulin, Blood 4.9 g/dL (2.2-4.0); Potassium, Blood 4.1 mmol/L (3.5-5.5); Total Protein, Blood 6.5 g/dL (6.4-8.2)
--- NOTE | 2021-02-12 10:05 | NUR ---
THIS RN RECIEVED REPORT AND IS ASSUMING CARE OF PT AT THIS TIME.
--- NOTE | 2021-02-12 18:14 | NUR ---
PT BEEN RESTING QUIETLY WHEN NOT DISTURBED. PT ON TELE. PT BEEN ASSISTED WITH ADL'S PRN. PT BEEN MED ORDERED AND PRN. PT BEEN VOIDING. PT EATING AND DRINKING WELL. PT BEEN COOPERATIVE THIS AFTERNOON.
--- NOTE | 2021-02-13 01:51 | NUR ---
RECEIVED REPORT FROM KAYLIE RANDLE. PT RESTING QUIETLY AT THIS TIME. CALL LT IN REACH.
--- NOTE | 2021-02-13 01:53 | NUR ---
REPORT GIVEN TO MADELINE LOTT. PATIENT IS RESTING AT THIS TIME. SHE WAS ALERT AND ORIENTED, ABLE TO MAKE HER NEEDS KNOWN. SHE HAS BEEN PLEASANT AND COOPERATIVE WITH CARE SO FAR THIS SHIFT. BED LOW AND LOCKED, CALL LIGHT WITHIN REACH.
--- NOTE | 2021-02-13 03:09 | NUR ---
PT RESTING QUIETLY. CALL LT IN REACH.
--- NOTE | 2021-02-13 04:50 | NUR ---
SHIFT SUMMARY: A/O. RESPONDS SLOWLY IN A WHINY VOICE. PERIODS OF AGITATION THEN FALLS ASLEEP. TOLERATES SNACKS. ON RA. AFIB 1 TEENS. PT PLACED ON HIGHER DOSE OF METOPROLOL TID. PG TO ARTHUR SALINE LOCKED. SBA TO BEDSIDE COMMODE. PT RESTED WELL T/O SHIFT. WILL CONTINUE TO PROVIDE CARE UNTIL SHIFT REPORT.
[2021-02-13 05:49] LABS: Hematocrit 31.6 % (33.0-51.0); Hemoglobin 10.2 g/dL (11.5-16.0); Mean Corpuscular HGB 26.4 pg (26.0-34.0); Mean Corpuscular HGB Conc 32.3 g/dL (31.5-36.5); Mean Corpuscular Volume 82 fL (80-100); Mean Platelet Volume 9.4 fL (9.1-12.4); Platelet Count 572 K/mm3 (150-400); RDW Coefficient Variation 15.8 % (11.7-14.2); RDW Standard Deviation 46.1 fL (35.1-46.3); Red Blood Cell Count 3.87 M/mm3 (3.80-5.20); White Blood Cell Count 26.09 K/mm3 (4.00-11.30)
[2021-02-13 06:22] LABS: Albumin, Blood 1.8 g/dL (3.4-5.0); Albumin/Globulin Ratio 0.3 (0.8-1.8); Bilirubin, Total 0.5 mg/dL (0.1-1.0); Bun/Creatinine Ratio 28.2 (12.0-20.0); Creatinine, Blood 1.1 mg/dL (0.40-1.00); Globulin, Blood 5.2 g/dL (2.2-4.0); Potassium, Blood 4.8 mmol/L (3.5-5.5)
[2021-02-13 08:59] LABS: Vancomycin, Trough 10.3 ug/mL (5.0-10.0)
--- NOTE | 2021-02-13 18:03 | NUR ---
PT HAS BEEN AGIATED T/O THE DAY, PT EXITS HER ROOM TWICE TO CUSS AND SCREAM AT STAFF SHE IS "FUCKING HUNGRY" AFTER SHE REFUSES HER FOOD TRAYS. DIETARY HAD COMPLETED HER MENU WITH HER WHICH SHE WAS AGREEABLE WITH AT THE TIME BUT NOW SHE IS REFUSING TO EAT FOOD STS THAT SHE WILL ONLY EAT OATMEAL AND SOUP THEN IS ANGRY WHEN SERVED SOUP AND OATMEAL PER HER REQUESTS. PT STS THAT SHE IS UNABLE TO EAT "ACTUAL FOOD BECAUSE I AM SO SICK" THEN DEMANDS SANDWICH THAT WHEN PRESENTED WITH SANDWICH ALSO WILL NOT EAT SANDWICH. PT WITH FLIGHT OF IDEAS, VERY COMPULSIVE. OTHERWISE VSS.
[2021-02-14 06:13] LABS: BASOPHILS ABSOLUTE AUTO 0.05 K/mm3 (0.00-0.23); BASOPHILS PERCENT AUTO 0 % (0-2); EOSINOPHILS ABSOLUTE AUTO 0.05 K/mm3 (0.00-0.68); EOSINOPHILS PERCENT AUTO 0 % (0-6); Hematocrit 30.1 % (33.0-51.0); Hemoglobin 9.7 g/dL (11.5-16.0); IMMATURE GRAN ABSOLUTE AUTO 0.27 K/mm3 (0.00-0.10); IMMATURE GRAN PERCENT AUTO 2 % (0-1); LYMPHOCYTES ABSOLUTE AUTO 1.18 K/mm3 (0.84-5.20); LYMPHOCYTES PERCENT AUTO 6 % (21-46); MONOCYTES ABSOLUTE AUTO 1.31 K/mm3 (0.16-1.47); MONOCYTES PERCENT AUTO 7 % (4-13); Mean Corpuscular HGB 25.9 pg (26.0-34.0); Mean Corpuscular HGB Conc 32.2 g/dL (31.5-36.5); Mean Corpuscular Volume 81 fL (80-100); Mean Platelet Volume 9.4 fL (9.1-12.4); NEUTROPHILS ABSOLUTE AUTO 15.58 K/mm3 (1.96-9.15); NEUTROPHILS PERCENT AUTO 84 % (41-73); Platelet Count 534 K/mm3 (150-400); RDW Coefficient Variation 15.4 % (11.7-14.2); RDW Standard Deviation 44.4 fL (35.1-46.3); Red Blood Cell Count 3.74 M/mm3 (3.80-5.20); White Blood Cell Count 18.44 K/mm3 (4.00-11.30)
[2021-02-14 06:16] LABS: Albumin, Blood 1.7 g/dL (3.4-5.0); Anion Gap 5 mmol/L (6-16); Blood Urea Nitrogen 28 mg/dL (8-24); Bun/Creatinine Ratio 30.2 (12.0-20.0); CO2, Blood 27 mmol/L (21-32); Chloride, Blood 100 mmol/L (98-108); Creatinine, Blood 0.93 mg/dL (0.40-1.00); Glomerular Filtration Rate >60 (60-); Glucose, Blood 100 mg/dL (70-99); Phosphorus, Blood 3.2 mg/dL (2.5-4.9); Potassium, Blood 4.7 mmol/L (3.5-5.5); Sodium, Blood 132 mmol/L (136-145)
--- NOTE | 2021-02-14 06:17 | NUR ---
SHIFT SUMMARY PT IS A 65 Y/O FEMALE, ADMITTED FOR MRSA BACTERMIA AND PERICARDITIS. SHE IS A&O X 3, VERY ANXIOUS AND DRAMATIC AT TIMES. CAN BE IRRITABLE WITH STAFF AT TIMES, BUT COOPERATIVE THIS SHIFT. PT OFTEN MOANS WHILE AWAKE, REPEATING THAT "I'M SICK, I'M VERY SICK". SHE WAS MEDICATED FOR GI UPSET WITH PRN MAALOX, AND FOR PAIN WITH SCHEDULED METHADONE. NO C/O SOB. VITAL SIGNS STABLE. TELE SHOWED AFIB IN THE 110S. NO OTHER ACUTE CHANGES IN PT CONDITION NOTED DURING THE NIGHT. WILL CONTINUE TO MONITOR AND TREAT PER EMAR UNTIL HAND OFF TO DAY SHIFT RN.
--- NOTE | 2021-02-14 17:54 | NUR ---
SHIFT SUMMARY PT IS AO. PT MEDICATED FOR PAIN X3 THIS SHIFT AND X2 FOR FEVER. PT DENIES N/V, SOB. PT C/O ABD DISCOMFORT/PAIN. PT IS ONE ASSIST TO BCC/BATHROOM. PT TELE RUNNING AFIB 120-130S WITH ONE INCIDENCE OF 150S THIS AM PRIOR TO AM MEDICATIONS. PT APPETITE IS POOR TO MODERATE. NO PROCEDURES DONE THIS SHIFT. PLAN IS FOR WBC TO DECREASE, THEN DC HOME. PT HAS NOT HAD VISITORS THIS SHIFT. PT IS IN BED, CALL LIGHT IN REACH, BED IN LOW POSITION.
[2021-02-14 21:42] LABS: Vancomycin, Trough 18.8 ug/mL (5.0-10.0)
--- NOTE | 2021-02-15 05:30 | NUR ---
SHIFT SUMMARY- PT. A&OX2, COMPLAINED DURING THE NIGHT OF SHANELLE FOOT AND STOMACH PAIN. MEDICATED PER EMAR WITH MINIMAL EFFECT. PT. MOANS OFTEN IN SLEEP DURING THE NIGHT, NO APPARENT DISTRESS NOTED. LOW GRADE TEMP LAST NIGHT, TYLENOL GIVEN PER ORDER. REPEAT TEMP WNL. DENIED ANY OTHER NEEDS, VSS. CALL LIGHT WITHIN REACH, SIDE RAILS UPX2, AND BED ALARM ON FOR SAFETY. WILL CONT TO MONITOR.
[2021-02-15 08:04] LABS: BASOPHILS ABSOLUTE AUTO 0.06 K/mm3 (0.00-0.23); BASOPHILS PERCENT AUTO 1 % (0-2); EOSINOPHILS ABSOLUTE AUTO 0.04 K/mm3 (0.00-0.68); EOSINOPHILS PERCENT AUTO 0 % (0-6); Hematocrit 31.3 % (33.0-51.0); IMMATURE GRAN ABSOLUTE AUTO 0.22 K/mm3 (0.00-0.10); IMMATURE GRAN PERCENT AUTO 2 % (0-1); LYMPHOCYTES ABSOLUTE AUTO 1.25 K/mm3 (0.84-5.20); LYMPHOCYTES PERCENT AUTO 12 % (21-46); MONOCYTES ABSOLUTE AUTO 1.44 K/mm3 (0.16-1.47); MONOCYTES PERCENT AUTO 14 % (4-13); Mean Corpuscular HGB 26.1 pg (26.0-34.0); Mean Corpuscular HGB Conc 31.9 g/dL (31.5-36.5); Mean Corpuscular Volume 82 fL (80-100); Mean Platelet Volume 9.4 fL (9.1-12.4); NEUTROPHILS PERCENT AUTO 72 % (41-73); Platelet Count 492 K/mm3 (150-400); RDW Coefficient Variation 15.4 % (11.7-14.2); RDW Standard Deviation 45.1 fL (35.1-46.3); Red Blood Cell Count 3.83 M/mm3 (3.80-5.20); White Blood Cell Count 10.61 K/mm3 (4.00-11.30)
--- NOTE | 2021-02-15 17:45 | NUR ---
SHIFT SUMMARY PT IS AOX4. PT MEDICATED FOR PAIN X1 AND X1 FOR GI UPSET. PT MEDICATED X1 FOR FEVER. PT 1 ASSIST IN ROOM. PT DENIES SOB, N/V. PT TELE AFIB 110S. PT APPETITE IS MODERATE. PLAN IS TO MONITOR FOR INFECTION. PT DID NOT HAVE VISITORS THIS SHIFT. PT IS IN BED, CALL LIGHT IN REACH, BED IN LOW POSITION.
--- NOTE | 2021-02-15 20:50 | NUR ---
PT DENIES HEADACHE, CHEST PAIN, OR SOB. PT REPORTS NEUROPATHY TO BILATERAL FEET. PT REPORTS URINATING WITHOUT DIFFICULTY, AND REPORTS HAVING A BM TODAY. PT'S TELE RHYTHM AFIB, HEART RATE LOW 100'S. PT HAS A HEART MURMUR. FLUIDS AT BEDSIDE. PT ASKING FOR ROOT BEER FLOAT - HAZARDOUS MATERIAL SPECIALIST PROVIDED. CALL LIGHT WITHIN REACH. BED IN LOW POSITION.
--- NOTE | 2021-02-16 06:49 | NUR ---
SHIFT SUMMARY - PT COMPLAINING OF EXTREME NEUROPATHY PAIN TO HER FEET - MEDICATED WITH TYLENOL AND THEN LYRICA. PT REPORTS LYRICA HAS WORKED WELL FOR HER NEUROPATHY PAIN. PT WAS ALSO REQUESTING METHADONE, BUT APPARENTLY IT WAS DC'D BECAUSE IT INTERACTS WITH PT PO ANTIBIOTIC, PER . NOTE - I RELAYED THIS INFORMATION TO PT. OTHERWISE, NO ACUTE CHANGES THROUGHOUT THIS SHIFT. PT SLEPT FOR SEVERAL HOURS TONIGHT. FLUIDS AT BEDSIDE. CALL LIGHT WITHIN REACH. BED IN LOW POSITION.
--- NOTE | 2021-02-16 14:27 | NUR ---
RESTING COMFORTABLY AT THIS TIME. PT EXPRESSING HER NEED FOR METHADONE. "I DON'T WANT TO USE HEROIN." METHADONE WAS DISCONTINUED. PT STATES,"WITH METHADONE I FELT SO MUCH BETTER." LYRICA WAS STARTED FOR COMPLAINTS OF NEUROPATHY.
--- NOTE | 2021-02-16 18:23 | NUR ---
PRODUCTIVE COUGH OF THICK PINK TINGED SPUTUM. PT STATES,"DIFFICULT TO COUGH UP" PLEASANT T/O DAY WITH NO ACUTE CHANGES.
--- NOTE | 2021-02-17 06:41 | NUR ---
SHIFT SUMMARY AOX4. REPORTS PAIN T/O BODY, MOSTLY IN "STOMACH" & BILAT FEET, GAVE TYLENOL & SCHEDULED LYRICA-PT STATED NO RELIEF. REPORTED NAUSEA, MEDICATED c ZOFRAN & MAAYLOX. ANXIOUS. LABILE. TEARFUL @TIMES. STATING SHE DOESNT WANT TO DO HEROIN BUT PT TRIED TO LEAVE AMA LAST NIGHT BECAUSE SHE WANTED "HEROIN OR OPIOIDS" FOR HER PAIN. INFORMED CHARGE NURSE & SHE CALLED MD, HE ORDERED 2MG IV ATIVAN. PT HAS BEEN RESTING COMFORTABLY SINCE. VSS. TELE NSR @88. CALL LIGHT IN REACH.
[2021-02-17] MEDS ORDERED: LINE600 PO (13:41)
[2021-02-17] MEDS ORDERED: METO50 PO (13:42)
[2021-02-17] MEDS ORDERED: PANT40 PO (13:42)
[2021-02-17] MEDS ORDERED: XARELTO20 MG PO (13:43)
[2021-02-17] MEDS ORDERED: LACT PO (13:44)
== END 2021-02-17 16:23 | disposition home or self-care (01) | DRG 871 ==
LOC: ER 10:59 → PCU 13:48 → MEDS 02-10 13:27
PROVIDERS: Emergency Medicine; Family Medicine; Internal Medicine; Pharmacist; ADMIT Internal Medicine
PROC: 8E0ZXY6 Isolation (ICD-10-PCS; 2021-02-05)
PROC: 0W9B3ZZ Drainage of Left Pleural Cavity, Percutaneous Approach (ICD-10-PCS; principal; 2021-02-06)
DX: A41.02 Sepsis due to Methicillin resistant Staphylococcus aureus (principal); I26.90 Septic pulmonary embolism without acute cor pulmonale; J96.01 Acute respiratory failure with hypoxia; N17.0 Acute kidney failure with tubular necrosis; J90 Pleural effusion, not elsewhere classified; I47.2 Ventricular tachycardia; E87.1 Hypo-osmolality and hyponatremia; F11.20 Opioid dependence, uncomplicated; I30.9 Acute pericarditis, unspecified; R65.20 Severe sepsis without septic shock; D63.8 Anemia in other chronic diseases classified elsewhere; B18.2 Chronic viral hepatitis C; E87.5 Hyperkalemia; E83.39 Other disorders of phosphorus metabolism; F41.9 Anxiety disorder, unspecified; F32.9 Major depressive disorder, single episode, unspecified; I25.10 Atherosclerotic heart disease of native coronary artery without angina pectoris; F19.10 Other psychoactive substance abuse, uncomplicated; G62.9 Polyneuropathy, unspecified; E83.51 Hypocalcemia; D47.3 Essential (hemorrhagic) thrombocythemia; E83.42 Hypomagnesemia; I48.0 Paroxysmal atrial fibrillation; J44.9 Chronic obstructive pulmonary disease, unspecified; I10 Essential (primary) hypertension; F17.210 Nicotine dependence, cigarettes, uncomplicated; I25.2 Old myocardial infarction; Z90.89 Acquired absence of other organs; Z98.890 Other specified postprocedural states; Z88.8 Allergy status to other drugs, medicaments and biological substances; Z90.710 Acquired absence of both cervix and uterus; Z91.5 Personal history of self-harm
CPT/HCPCS: 32555; 36415; 36600; 71045; 71046; 71250; 76705; 76770; 80053; 80069; 80076; 80202; 81001; 82105; 82248; 82330; 82550; 82803; 83605; 83735; 83880; 84100; 84132; 85025; 85027; 85610; 85730; 86038; 86160; 87040; 87070; 87086; 87205; 93005; 93010; 93308; 93321; 93970; 94760; 94762; 96365; 96375; 99285-25; A9270; C1751; C9113; G0480; J0360; J0610; J1170; J1644; J1815; J1940; J2060; J2405; J3370; J3475; J7030; J7050; J7070

== ENCOUNTER 2021-06-30 20:17 | Observation (INO) | payer MEDICARE ==
[~2021-06-30] VITALS: Ht 165.1 cm; Wt 56.7 kg
[~2021-06-30 20:17] MED LIST changes: +LACT PO; +LINE600 PO; +METO50 PO; +PANT40 PO; +PREG75 PO; +XARELTO20 MG PO
[2021-07-01 00:25] LABS: BASOPHILS ABSOLUTE AUTO 0.08 K/mm3 (0.00-0.23); BASOPHILS PERCENT AUTO 1 % (0-2); EOSINOPHILS ABSOLUTE AUTO 0.09 K/mm3 (0.00-0.68); EOSINOPHILS PERCENT AUTO 1 % (0-6); Hematocrit 40.2 % (33.0-51.0); Hemoglobin 12.2 g/dL (11.5-16.0); IMMATURE GRAN ABSOLUTE AUTO 0.14 K/mm3 (0.00-0.10); IMMATURE GRAN PERCENT AUTO 1 % (0-1); LYMPHOCYTES ABSOLUTE AUTO 3.41 K/mm3 (0.84-5.20); LYMPHOCYTES PERCENT AUTO 20 % (21-46); MONOCYTES ABSOLUTE AUTO 1.02 K/mm3 (0.16-1.47); MONOCYTES PERCENT AUTO 6 % (4-13); Mean Corpuscular HGB 21.5 pg (26.0-34.0); Mean Corpuscular HGB Conc 30.3 g/dL (31.5-36.5); Mean Corpuscular Volume 71 fL (80-100); Mean Platelet Volume 9.9 fL (9.1-12.4); NEUTROPHILS ABSOLUTE AUTO 12.46 K/mm3 (1.96-9.15); NEUTROPHILS PERCENT AUTO 73 % (41-73); Platelet Count 338 K/mm3 (150-400); RDW Coefficient Variation 19.9 % (11.7-14.2); RDW Standard Deviation 49.1 fL (35.1-46.3); Red Blood Cell Count 5.67 M/mm3 (3.80-5.20)
[2021-07-01 00:27] LABS: Influenza A, PCR NEGATIVE (NEGATIVE); Influenza B, PCR NEGATIVE (NEGATIVE); Resp Syncytial Virus, PCR NEGATIVE (NEGATIVE); SARS-Cov-2 (COVID-19) PCR, MMC NEGATIVE (NEGATIVE)
[2021-07-01 00:34] LABS: Acetaminophen, Random 6.5 ug/mL (10.0-30.0); Alanine Aminotransfer (ALT/SGP 37 U/L (12-78); Albumin, Blood 3.2 g/dL (3.4-5.0); Albumin/Globulin Ratio 0.7 (0.8-1.8); Alk Phos 112 U/L (50-136); Anion Gap 5 mmol/L (6-16); Aspartate Aminotrans (AST/SGOT 24 U/L (12-37); Bilirubin, Total 0.3 mg/dL (0.1-1.0); Blood Urea Nitrogen 22 mg/dL (8-24); Bun/Creatinine Ratio 40.3 (12.0-20.0); CO2, Blood 24 mmol/L (21-32); Calcium, Blood 8.9 mg/dL (8.5-10.1); Chloride, Blood 110 mmol/L (98-108); Creatinine, Blood 0.55 mg/dL (0.40-1.00); Ethanol (Alcohol), Blood, Med <3 mg/dL; Globulin, Blood 4.6 g/dL (2.2-4.0); Glomerular Filtration Rate >60 (60-); Glucose, Blood 91 mg/dL (70-99); Potassium, Blood 4.5 mmol/L (3.5-5.5); Salicylate 2.1 mg/dL (2.8-20.0); Sodium, Blood 139 mmol/L (136-145); Total Protein, Blood 7.8 g/dL (6.4-8.2)
[2021-07-01 00:55] LABS: Source, Urine Clean Catch
[2021-07-01 01:01] LABS: Bilirubin, Urine Neg (Neg); Blood, Urine Neg (Neg); Glucose Qualitative, Urine Neg (Neg); Ketones, Urine Neg (Neg); Leukocyte Esterase, Urine Neg (Neg); Nitrite, Urine Neg (Neg); Protein, Urine Neg (Neg); Urobilinogen, Urine NORM (Normal)
[2021-07-01 01:03] LABS: Appearance, Urine Clear (Clear); Color, Urine Yellow (P-Yellow)
[2021-07-01 01:32] LABS: U Amphetamine Screen DETECTED; U Barbituate Screen Not Detected; U Benzodiazapine Screen Not Detected; U Buprenorphine Screen Not Detected; U Cannabinoids Screen DETECTED; U Cocaine Screen Not Detected; U Methadone Screen Not Detected; U Methamphetamine Screen DETECTED; U Opiates Screen DETECTED; U Oxycodone Screen Not Detected; U Phencyclidine Screen Not Detected; U Propoxyphene Screen Not Detected
[2022-01-29] MEDS ORDERED: ONDA4ODT MM (11:41)
[2022-01-29] MEDS ORDERED: AMLO5 PO (11:41)
== END 2021-07-01 13:37 | disposition home or self-care (01) ==
LOC: ER 20:17 → EOR 20:18
PROVIDERS: ADMIT Emergency Medicine
DX: F11.23 Opioid dependence with withdrawal (principal); R45.1 Restlessness and agitation; F17.200 Nicotine dependence, unspecified, uncomplicated; I48.91 Unspecified atrial fibrillation; S01.01XA Laceration without foreign body of scalp, initial encounter; W22.8XXA Striking against or struck by other objects, initial encounter; Z79.01 Long term (current) use of anticoagulants; Z88.8 Allergy status to other drugs, medicaments and biological substances; Z20.822 Contact with and (suspected) exposure to COVID-19
CPT/HCPCS: 0241U; 12001; 80053; 81003; 81025; 85025; 96372; 99285-25; G0378; G0480; J1630; J1790; J2060

== ENCOUNTER 2024-07-25 20:05 | Inpatient (IN) | payer MEDICARE ==
[~2024-07-25] VITALS: Ht 162.6 cm; Wt 59.9 kg
[~2024-07-25 20:05] MED LIST changes: +AMLO5 PO; +ONDA4ODT MM
[2024-07-25 20:32] LABS: BASOPHILS ABSOLUTE AUTO 0.01 K/mm3 (0.00-0.23); BASOPHILS PERCENT AUTO 0 % (0-2); EOSINOPHILS ABSOLUTE AUTO 0.05 K/mm3 (0.00-0.68); EOSINOPHILS PERCENT AUTO 1 % (0-6); Hematocrit 40.3 % (33.0-51.0); Hemoglobin 13.5 g/dL (11.5-16.0); IMMATURE GRAN ABSOLUTE AUTO 0.03 K/mm3 (0.00-0.10); IMMATURE GRAN PERCENT AUTO 0 % (0-1); LYMPHOCYTES ABSOLUTE AUTO 1.95 K/mm3 (0.84-5.20); LYMPHOCYTES PERCENT AUTO 23 % (21-46); MONOCYTES ABSOLUTE AUTO 0.68 K/mm3 (0.16-1.47); MONOCYTES PERCENT AUTO 8 % (4-13); Mean Corpuscular HGB 27.8 pg (26.0-34.0); Mean Corpuscular HGB Conc 33.5 g/dL (31.5-36.5); Mean Corpuscular Volume 83 fL (80-100); Mean Platelet Volume 10.2 fL (9.1-12.4); NEUTROPHILS PERCENT AUTO 68 % (41-73); Platelet Count 256 K/mm3 (150-400); RDW Coefficient Variation 13.5 % (11.7-14.2); RDW Standard Deviation 41.1 fL (35.1-46.3); Red Blood Cell Count 4.85 M/mm3 (3.80-5.20); White Blood Cell Count 8.52 K/mm3 (4.00-11.30)
[2024-07-25 20:56] LABS: Albumin, Blood 3.4 g/dL (3.4-5.0); Albumin/Globulin Ratio 0.9 (0.8-1.8); Bilirubin, Total 0.7 mg/dL (0.1-1.0); Bun/Creatinine Ratio 18.5 (12.0-20.0); Calcium, Blood 8.6 mg/dL (8.5-10.1); Creatinine, Blood 0.59 mg/dL (0.40-1.00); Globulin, Blood 3.7 g/dL (2.2-4.0); Potassium, Blood 3.6 mmol/L (3.5-5.5); Total Protein, Blood 7.1 g/dL (6.4-8.2)
[2024-07-25 23:35] LABS: Source, Urine Clean Catch
[2024-07-25 23:39] LABS: Bilirubin, Urine Neg (Neg); Blood, Urine Neg (Neg); Glucose Qualitative, Urine Neg (Neg); Ketones, Urine Neg (Neg); Leukocyte Esterase, Urine 1+ (Neg); Nitrite, Urine Neg (Neg); Protein, Urine Neg (Neg); Urobilinogen, Urine NORM (Normal)
[2024-07-25 23:46] LABS: Appearance, Urine Clear (Clear); Color, Urine Yellow (P-Yellow)
[2024-07-25 23:47] LABS: Bacteria Mod /hpf; Red Blood Cells, Urine 0-2 /hpf (0-2); Squamous Epithelial Cells Mod /hpf (Few)
[2024-07-25 23:53] LABS: Magnesium, Blood 1.9 mg/dL (1.6-2.4)
[2024-07-26] MEDS ORDERED: Ondansetron HCl 2 MG / ML 2ML Vial IV PRN (01:05)
[2024-07-26] MEDS ORDERED: FLU VACC TS2024-25(6MOS UP)/PF 45 MCG/0.5 ML SYRINGE IM ONE (01:05)
[2024-07-26] MEDS ORDERED: NS 1,000 ML IV ONE (01:05)
[2024-07-26] MEDS ORDERED: CefTRIAXone Sodium 1,000 MG in NS 100 ML IV SCH (01:51)
[2024-07-26] MEDS ORDERED: FentaNYL Citrate 50 MCG/ML 2 ML Injection IV PRN (03:35)
[2024-07-26 03:56] LABS: U Amphetamine Screen DETECTED; U Barbituate Screen Not Detected; U Benzodiazapine Screen Not Detected; U Buprenorphine Screen Not Detected; U Cannabinoids Screen DETECTED; U Cocaine Screen Not Detected; U Methadone Screen Not Detected; U Methamphetamine Screen DETECTED; U Opiates Screen Not Detected; U Oxycodone Screen Not Detected; U Phencyclidine Screen Not Detected
[2024-07-26 05:33] LABS: BASOPHILS ABSOLUTE AUTO 0.03 K/mm3 (0.00-0.23); BASOPHILS PERCENT AUTO 0 % (0-2); EOSINOPHILS ABSOLUTE AUTO 0.07 K/mm3 (0.00-0.68); EOSINOPHILS PERCENT AUTO 1 % (0-6); Hematocrit 39.1 % (33.0-51.0); IMMATURE GRAN ABSOLUTE AUTO 0.01 K/mm3 (0.00-0.10); IMMATURE GRAN PERCENT AUTO 0 % (0-1); LYMPHOCYTES ABSOLUTE AUTO 2.03 K/mm3 (0.84-5.20); LYMPHOCYTES PERCENT AUTO 29 % (21-46); MONOCYTES ABSOLUTE AUTO 0.63 K/mm3 (0.16-1.47); MONOCYTES PERCENT AUTO 9 % (4-13); Mean Corpuscular HGB 28.1 pg (26.0-34.0); Mean Corpuscular HGB Conc 33.2 g/dL (31.5-36.5); Mean Corpuscular Volume 84 fL (80-100); Mean Platelet Volume 9.8 fL (9.1-12.4); NEUTROPHILS ABSOLUTE AUTO 4.29 K/mm3 (1.96-9.15); NEUTROPHILS PERCENT AUTO 61 % (41-73); Platelet Count 227 K/mm3 (150-400); RDW Coefficient Variation 13.5 % (11.7-14.2); Red Blood Cell Count 4.63 M/mm3 (3.80-5.20); White Blood Cell Count 7.06 K/mm3 (4.00-11.30)
[2024-07-26 05:58] LABS: Albumin, Blood 3.1 g/dL (3.4-5.0); Albumin/Globulin Ratio 0.9 (0.8-1.8); Bilirubin, Total 0.7 mg/dL (0.1-1.0); Bun/Creatinine Ratio 20.3 (12.0-20.0); Calcium, Blood 8.4 mg/dL (8.5-10.1); Creatinine, Blood 0.64 mg/dL (0.40-1.00); Globulin, Blood 3.6 g/dL (2.2-4.0); Potassium, Blood 3.8 mmol/L (3.5-5.5); Total Protein, Blood 6.7 g/dL (6.4-8.2)
[2024-07-26] MEDS ORDERED: Aspirin 325 MG Tab PO ONE (08:00)
[2024-07-26 13:34] VITALS: BP 165/100
--- NOTE | 2024-07-26 14:51 | NUR ---
Pt was taken down to mri via wheelchair, was two person assist to tx to chair, she arrived to room 342 via wheelchair, a/ox4, but very forgetful, pleasant and cooperative with care, follows commands well, states she doesn't feel well, and can't walk, her legs wont mind her, lungs are clear t/o, resp even and unlabored, no cough noted, on r/a, hrirr, tele on shows afib, no edema noted, ppp+2, cap refill <4 sec, vs htn, afebrile, piv to rfa, site is clear and patent, btx4, abd flat soft nontender, voids without diff, skin c/w/d, vicky ye, oriented to room layout and call system, call light in reach.
[2024-07-26] MEDS ORDERED: LORazepam 2 MG/ML 1ML Injection IV SCH (15:05)
[2024-07-26 15:58] VITALS: BP 151/109
--- NOTE | 2024-07-26 16:48 | NUR ---
Spiritual care visit pt request. Attempted to visit. Will attempt to visit again tomorrow.
--- NOTE | 2024-07-26 18:31 | NUR ---
pt has increased confusion the end of this shift. she is impulsive, got herself to bsc without calling, calls for her mom, no further changes this shift. call light in reach.
[2024-07-26 19:52] VITALS: BP 153/83
[2024-07-26] MEDS ORDERED: NS 250 ML IV PRN (21:35)
[2024-07-27] MEDS ORDERED: rOPINIRole HCl 0.25 MG Tab PO PRN (00:35)
[2024-07-27] MEDS ORDERED: Melatonin 3 MG Tab PO PRN (00:35)
[2024-07-27] MEDS ORDERED: Melatonin 3 MG Tab PO ONE (00:35)
[2024-07-27 03:16] VITALS: BP 166/104
--- NOTE | 2024-07-27 05:02 | NUR ---
SHIFT SUMMARY PATIENT HALLUCINATING AUDITORY/VISUAL AT TIMES. VERY ANXIOUS WITH RESTLESS LEGS AND LEG PAIN. DR DOBBS ORDERED REQUIP 0.25 MG FOR RESTLESS LEGS. NEW PIV PLACED AND IV ABX INFUSED. IV FENTANYL 50 MCG x 2 PER EMAR FOR LEG PAIN. DENIES CHEST PAIN & SOB. NAUSEOUS X ONE AND IV ZOFRAN GIVEN. VSS/AFEBRILE. TELE MONITOR AFIB 101. IMPULSIVE AND UNSTEADY WITH ONE ASSIST TO BSC, BED ALARM ON. CALL LIGHT IN REACH. WILL CONTINUE TO MONITOR UNTIL DAY SHIFT NURSE ASSUMES CARE.
[2024-07-27 07:18] VITALS: BP 153/106
--- NOTE | 2024-07-27 09:00 | NUR ---
pt is very impulsive but redirectable, states she can't remember anything, instructed her to use call light prior to getting oob but doesn't, bed alarm alway engaged, a/ox3, forgetful, cooperative but at times can be volitile and use foul language, lungs are clear t/o, resp even and unlabored, no cough noted, on r/a, hrirr, pulls lines off regularly, no edema noted, ppp+1, cap reifll <3 sec, vs stable, afebrile, piv to left wrist area, site is clear and patent btx4, abd flat soft nontender, voids without diff, skin c/w/d, maew, vicky, call light in reach.
[2024-07-27] MEDS ORDERED: CloNIDine 0.1 MG Tab PO PRN (12:50)
[2024-07-27] MEDS ORDERED: LORazepam 0.5 MG Tab PO PRN (12:50)
[2024-07-27 15:56] VITALS: BP 158/105
--- NOTE | 2024-07-28 05:22 | NUR ---
SHIFT SUMMARY PT ALERT AND ORIENTED TIMES 3. PT ADMITTED FOR ENCEPHALOPATHY. POSITIVE FOR METH USE. PT HAS HX OF MRSA, SEPTIC EMBOLISM, PERICARDITIS, A -FIB, HTN, HEP-C, COPD, CHRONIC LEG PAIN. 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 PT HIGH FALL RISK, WILL WITHOUT NOTICE LOOSE MUSCLE CONTROL AND COLLAPSE WHILE SITTING UP OR STANDING. PT HAD IV PLACED IN RIGHT UPPER ARM, FLUSHED WELL. BED IN LOW POSITION, CALL LIGHT WITHIN REACH, RAILS TIMES 2.
--- NOTE | 2024-07-28 05:49 | NUR ---
PT HAS RASH ON CENTER OF BACK AND ON BACK SIDE OF LEGS. PICTURES IN CHART
[2024-07-28] MEDS ORDERED: rOPINIRole HCl 0.25 MG Tab PO SCH (06:40)
[2024-07-28 07:08] VITALS: BP 153/109
[2024-07-28] MEDS ORDERED: Atorvastatin 40 MG Tab PO SCH (09:00)
[2024-07-28] MEDS ORDERED: Aspirin 81 MG Chew PO SCH (09:00)
[2024-07-28] MEDS ORDERED: Triamcinolone Acet 0.5% Cream 15 gm TOP PRN (10:20)
[2024-07-28 12:45] VITALS: BP 140/100
[2024-07-28] MEDS ORDERED: Nicotine 14 MG PATCH TOP SCH (15:30)
[2024-07-28] MEDS ORDERED: OxyCODONE HCL 5 MG TAB PO PRN (15:30)
--- NOTE | 2024-07-28 17:04 | NUR ---
CALLED DR PARDO [phone], NOTIFIED HIM THAT PT REPORTEDLY FROM [facility] SPOKE ABOUT THOUGHTS OF SUICIDE. RN ASSESSED AND PT STATES SHE WOULD NEVER KILL HERSELF, SHE DOESN'T HAVE A PLAN. SHE STATES "I JUST DONT WANT TO BE HERE". PT STATES SHE WANTS TO LEAVE AND GO HAVE A CIGARETTE. PT ALSO STATES SHE IS DETOXING FROM FENT (SMOKES), AND METH ALTHOUGH FENT NEGATIVE ON TOX SCREEN. PT CONT TO HAVE SEVERE LEG PAIN DESPITE PAIN REGIMIN. ORDER FOR PT TO BE ON LOW SI. NICOTINE PATCH ORDERED AND OXY ADDED FOR PAIN. WILL MIRANDA
--- NOTE | 2024-07-28 17:09 | NUR ---
SUMMARY- PT A/O X3-4. 1:1 SITTER FOR IMPULSIVITY. AMBULATES TO BATHROOM SBA, VERY POOR GAIT, ADQ STRENGTH. TOLERATING FOOD AND FLUID. FREQ NAPPING. MEDICATED WITH ATIVAN X2 THIS SHIFT FOR ANXIETY. MED WITH FENT X2 FOR CHRONIC LEG PAIN WITH RELEIF. MED WITH CLONODINE X2 FOR PRN BP. PT'S LUNGS CLEAR. TELE A FIB 90-110. STARTED TRIAMCIN. CR FOR RASH OVER BODY THAT DR PARDO VISUALIZED THIS AM. WILL REPORT TO NOC RN
[2024-07-28 20:12] VITALS: BP 140/95
[2024-07-29 02:44] VITALS: BP 147/114
[2024-07-29 05:03] VITALS: BP 150/101
--- NOTE | 2024-07-29 05:48 | NUR ---
A&O X4, DROWSY T/O SHIFT, COOPERATIVE W/CARES, MEDICATED PER SEP FOR C/O BL LEG PAIN, UP TO BR SEVERAL TIMES WITH 1P ASSIST AND FWW, GOOD PO INTAKE, SLEEPING AT THIS TIME, CALL LIGHT IN REACH, SITTER AT BEDSIDE, WILL CONT TO MONITOR UNTIL REPORT GIVEN TO ONCOMING NURSE.
[2024-07-29] MEDS ORDERED: FentaNYL Citrate 50 MCG/ML 2 ML Injection IV PRN (07:25)
[2024-07-29 07:28] VITALS: BP 137/97
[2024-07-29] MEDS ORDERED: Metoprolol Succinate 25 MG TABCR PO SCH (09:00)
[2024-07-29 15:07] VITALS: BP 155/93
--- NOTE | 2024-07-29 20:15 | NUR ---
SUMMARY- PT A/OX3-4, VERBAL AND INTERACTIVE WITH STAFF. PT HAS A LABILE MOOD AND BECOMES RESTLESS AND ANXIOUS EASILY. PT IS DIRECTABLE NOW AND WE WERE ABLE TO DC 1:1 SITTER. USING BED ALARM, PT HAS BEEN USING THE CALL LIGHT. SOMETIMES SETS OFF BED ALARM AND WONT WAIT FOR RN, BUT STAFF ABLE TO GET TO HER TO AMBULATE SBA FOR SAFETY, PT HAS ADQ STRENGTH AND STEADY GAIT WITH OCC MIS-STEP. GAIT MUCH IMPROVED FROM YESTERDAY. PT C/O CHRONIC LEG PAIN. ALSO COMPLAINED OF ABD DISCOMFORT, EPIGASTRIC TIGHTNESS. PAIN CONTROLLED ALTERNATING FENT IV/OXY PO. PRN ATIVAN AIDS IN ANXIETY. REOPRTED TO ROB ZAMBRANO RN
[2024-07-29] MEDS ORDERED: Apixaban 5 MG Tab PO SCH (21:00)
[2024-07-29 21:14] VITALS: BP 148/89
[2024-07-30 02:33] VITALS: BP 171/109
[2024-07-30] MEDS ORDERED: HydrALAZINE HCl 20 MG / ML 1ML Vial IV ONE (03:00)
--- NOTE | 2024-07-30 05:12 | NUR ---
SHIFT SUMMARY 68 YR F ADMITTED ON 07/27/24. FULL CODE. PT IS IMPULSIVE TO GET OUT OF BED W/O CALLING FOR ASSISTANCE, EVEN W/ MANY REMINDERS. SHE IS UNSTEADY ON HER FEET AND NEARLY FELL OFF THE TOILET SO IT IS NOT SAFE FOR HER TO AMBULATE INDEPENDANTLY. BED ALARM IS ON FOR SAFETY. BP WAS 171/109 @ 0230 AND ORDER WAS OBTAINED FOR ONE TIME DOSE OF HYDRALIZINE. PT C/O BURNING PAIN IN HER FEET AND SPECIFICALLY ASKED FOR FENTANYL. SHE WAS GIVEN OXY FOR PAIN PRIOR TO THAT. WILL CONTINUE TO MONITOR. BED IN LOW POSITION WITH ALARM ON, AND CALL LIGHT IN REACH.
[2024-07-30 07:32] VITALS: BP 133/84
[2024-07-30] MEDS ORDERED: Metoprolol Succinate 25 MG TABCR PO SCH (09:00)
--- NOTE | 2024-07-30 09:00 | NUR ---
pt laying in bed, impulsive, doesn't follow directions, bed alarm acitvated, a/ox2-3, very forgetful, lungs are clear in upper rubio, dim in bases, resp even and unlabored, no cough noted, hirr, tele in place running afib per monitor, see strip, no edema noted, ppp+2, cap refill <3 sec, vs stable, afebrile, piv to aubrey site is clear and patent, btx4, abd flat soft nontender, voids without diff, skin c/w/d, maew, vicky, call light in reach.
--- NOTE | 2024-07-30 12:50 | NUR ---
pt sat up in chair for lunch, asked for assist back to bed, got herself in bed. call light in reach.
[2024-07-30 15:23] VITALS: BP 150/105
--- NOTE | 2024-07-30 15:27 | NUR ---
Spirtual care visit conducted. Pt is awake and alert but displayed a slowed manner of speaking. Pt appears lethargic. Pt has suffered a stroke and took a significant fall. Pt describes nausea as a result of the stroke and feels that this might be an unusual symptom. Spiritual assessment conducted. Pt used to attend [facility] in [place] but has fallen away from the raman. Pt maintains a connection to god and thinks that those who live without raman likely have a darker outlook on life. Life review conducted. Pt's father and sister committed suiciide. Provided compassionate listening and examined the theological implications of suicide and whether or not this prevents admittance into [facility]. Pt also describes dissonance between sister "She's jealous of me" Pt's mother expressed to pt that she was the "favorite" in her last moments and this only deepened the conflict. Pt reports being sober and suggests that drug use in others is linked to bipolar disorder. Pt has a close relationship with her daughter but expresses disappointment about not being able to live with her because of potential familial conflict. Pt takes great pride in her daughter's career path and affluent life. Pt requested a bible. Bible was delivered. Prayer was offered. Pt was receptive to prayer and thankful for the visit: "Thank you for going around and ministering", "feel free to stop by again." Although pt began to complain of nausea, Pt appears comforted and uplifted by visit. linked
[2024-07-30] MEDS ORDERED: Mag Hydrox/AL Hydrox/Simeth 30 ML UDC PO PRN (16:45)
--- NOTE | 2024-07-30 18:17 | NUR ---
pt had a pretty uneventful day today, she ambulated out in [place] with a walker quite a distance, gait noted to be steady, she complained of stomach pain, Dr. Ortega ordered maalox for her, this was given, she didn't feel it made much difference. no further changes this shift, call light in reach.
[2024-07-30] MEDS ORDERED: Mag Hydrox/Al Hydrox/Simeth 18 ML,Lidocaine 2% Viscous Soln 9 ML,Atropine/Scopalam/Hyos... PO ONE (19:50)
[2024-07-30 21:55] VITALS: BP 132/98
--- NOTE | 2024-07-31 04:12 | NUR ---
SHIFT SUMMARY 68 YR F ADMITTED ON 07/27/24. FULL CODE. NO ACUTE CHANGES THIS SHIFT. PT AMBULATED IN THE HALLWAY SEVERAL TIMES THIS SHIFT. SHE IS STEADY ON HER FEET W/ FWW. PT C/O STOMACH ACHE AND BURNING EVEN AFTER RECEIVING MAALOX EARLIER IN THE DAY. ORDER WAS OBTAINED FOR GI COCKTAIL AND PT STATED THAT IT WORKED VERY WELL. PT ALSO C/O BURNING PAIN IN HER LEGS AND WAS MEDICATE PER EMAR W/ GOOD RESULTS. PT WAS ABLE TO SLEEP FOR SEVERAL HOURS AT A TIME THIS SHIFT. NO OTHER C/O PAIN OR DISCOMFORT THIS SHIFT. WILL CONTINUE TO MONITOR. BED IN LOW POSITION AND CALL LIGHT IN REACH.
[2024-07-31 04:33] VITALS: BP 141/89
[2024-07-31 07:28] VITALS: BP 135/89
[2024-07-31] MEDS ORDERED: Polyethylene Glycol 3350 17 gm PO PRN (12:30)
--- NOTE | 2024-07-31 17:43 | NUR ---
SHIFT SUMMARY PT AOX3-4, INTERMITTANT CONFUSION. 1 ASSIST WITH THE FWW TO THE BR. MEDICATED FOR NAUSEA PER THE EMAR. PT HAS NOT HAD A BM FOR TWO DAYS, NEW BOWEL CARE MEDS ORDERED PER THE EMAR. PT CALLS AT TIMES, SOMETIMES JUST YELLS OUT. BA AND CA ON WHEN APPLICABLE. PT REPOSITIONS SELF IN BED. NO EVENTS PER TELE. PLAN IS TO POSSIBLY DC TOMORROW. FAMILY UPDATED THIS SHIFT. CALL LIGHT WITHIN REACH, BED LOCKED AND IN THE LOWEST POSITION. WILL REPORT TO ONCOMING NURSE.
[2024-07-31 19:34] VITALS: BP 132/93
[2024-07-31] MEDS ORDERED: Docusate Sodium/Senna 1 Tab PO SCH (21:00)
[2024-08-01 03:02] VITALS: BP 150/102
--- NOTE | 2024-08-01 03:11 | NUR ---
SHIFT SUMMARY 68 YR F ADMITTED ON 07/27/24. FULL CODE. NO ACUTE CHANGES THIS SHIFT. PT PULLED HER IV OUT EARLY IN THE SHIFT AND ALSO REMOVED HER TELE. SINCE DISCHARGE IS PLANNED FOR TOMORROW, ORDER WAS OBTAINED FOR DC OF BOTH. NO OTHER CHANGES TO REPORT. WILL CONTINUE TO MONITOR. BED IN LOW POSITION AND CALL LIGHT IN REACH.
[2024-08-01 09:30] VITALS: BP 134/88
[2024-08-01] MEDS ORDERED: Metoclopramide HCl 10 MG Tab PO PRN (10:35)
[2024-08-01] MEDS ORDERED: Pregabalin 25 MG Capsule PO SCH (10:35)
[2024-08-01] MEDS ORDERED: ASPI81CH PO (14:11)
[2024-08-01] MEDS ORDERED: ELIQUIS5 M2 PO (14:11)
[2024-08-01] MEDS ORDERED: ALUM-MAG HYDROX30 M2 PO (14:11)
[2024-08-01] MEDS ORDERED: ATOR40TA PO (14:13)
[2024-08-01] MEDS ORDERED: MELA3 PO (14:13)
[2024-08-01] MEDS ORDERED: METO5A PO (14:14)
[2024-08-01] MEDS ORDERED: Nicoderm Cq1 EAC1 TOP (14:15)
[2024-08-01] MEDS ORDERED: ONDA4ODT MM (14:15)
[2024-08-01] MEDS ORDERED: METO25ER PO (14:15)
[2024-08-01] MEDS ORDERED: OXYC5 PO (14:16)
[2024-08-01] MEDS ORDERED: MIRALAX17 GM PO (14:16)
[2024-08-01] MEDS ORDERED: ROPI.25 PO (14:17)
[2024-08-01] MEDS ORDERED: PREG25 PO (14:17)
--- NOTE | 2024-08-01 15:14 | NUR ---
DISCHARGE NOTE PT DISCHARGED TO HOME, PICKED UP BY HER [id number]. TAKEN TO HER VEHICLED BY WC. IV REMOVED, TELE RETURNED. DISCHARGE INFORMATION AND EDUCATION PROVIDED. MEDICATIONS FAXED TO THE PHARMACY OF HER CHOICE. HARD SCRIPT PROVIDED. PERSONAL BELONGINGS RETURNED.
== END 2024-08-01 15:07 | disposition home health service (06) | DRG 65 ==
LOC: ER 20:05 → ERHOLD 20:06 → MEDS 20:06
PROVIDERS: Emergency Medicine; Student in an Organized Health Care Education/Training Program; ADMIT Internal Medicine
DX: I63.9 Cerebral infarction, unspecified (principal); G93.49 Other encephalopathy; Z59.02 Unsheltered homelessness; I10 Essential (primary) hypertension; F32.A Depression, unspecified; J44.9 Chronic obstructive pulmonary disease, unspecified; F15.10 Other stimulant abuse, uncomplicated; I48.91 Unspecified atrial fibrillation; L30.9 Dermatitis, unspecified; F03.90 Unspecified dementia, unspecified severity, without behavioral disturbance, psychotic disturbance, mood disturbance, and anxiety; F40.240 Claustrophobia; R56.9 Unspecified convulsions; Z99.89 Dependence on other enabling machines and devices; Z88.8 Allergy status to other drugs, medicaments and biological substances; Z79.01 Long term (current) use of anticoagulants; Z86.14 Personal history of Methicillin resistant Staphylococcus aureus infection
CPT/HCPCS: 70450; 70496; 70498; 71046; 80053; 81001; 83735; 84484; 85025; 87086; 93005; 93010; 96365; 96366; 96375; 96376; 97110; 97112; 97116; 97161; 97165; 97530; 97535; 99285-25; A9270; G0378; J0360; J0696; J2060; J2405; J3010; J7030; J7050; Q9967

== ENCOUNTER 2025-01-15 20:02 | Inpatient (IN) | payer MEDICARE ==
[~2025-01-15] VITALS: Ht 162.6 cm; Wt 55.2 kg
[~2025-01-15 20:02] MED LIST changes: +ALUM-MAG HYDROX30 M2 PO; +ASPI81CH PO; +ATOR40TA PO; +ELIQUIS5 M2 PO; +MELA3 PO; +METO25ER PO; +METO5A PO; +MIRALAX17 GM PO; +Nicoderm Cq1 EAC1 TOP; +OXYC5 PO; +PREG25 PO; +ROPI.25 PO
[2025-01-15] MEDS ORDERED: Diazepam 5 MG / ML 2ML SYR IV ONE (20:15)
[2025-01-15 20:41] LABS: BASOPHILS ABSOLUTE AUTO 0.04 K/mm3 (0.00-0.23); BASOPHILS PERCENT AUTO 1 % (0-2); EOSINOPHILS ABSOLUTE AUTO 0.10 K/mm3 (0.00-0.68); EOSINOPHILS PERCENT AUTO 2 % (0-6); Hematocrit 32.5 % (33.0-51.0); Hemoglobin 9.9 g/dL (11.5-16.0); IMMATURE GRAN ABSOLUTE AUTO 0.02 K/mm3 (0.00-0.10); IMMATURE GRAN PERCENT AUTO 0 % (0-1); LYMPHOCYTES ABSOLUTE AUTO 2.29 K/mm3 (0.84-5.20); LYMPHOCYTES PERCENT AUTO 34 % (21-46); MONOCYTES ABSOLUTE AUTO 0.86 K/mm3 (0.16-1.47); MONOCYTES PERCENT AUTO 13 % (4-13); Mean Corpuscular HGB Conc 30.5 g/dL (31.5-36.5); Mean Corpuscular Volume 72 fL (80-100); NEUTROPHILS ABSOLUTE AUTO 3.52 K/mm3 (1.96-9.15); NEUTROPHILS PERCENT AUTO 52 % (41-73); NRBC ABSOLUTE 0.00 K/mm3 (0.00-0.02); NRBC Auto 0.0 /100 WBC (0.0-0.2); Platelet Count 324 K/mm3 (150-400); RDW Coefficient Variation 16.7 % (11.7-14.2); RDW Standard Deviation 42.5 fL (35.1-46.3)
[2025-01-15 20:58] LABS: Alanine Aminotransfer (ALT/SGP 58.0 U/L (12-78); Albumin, Blood 2.7 g/dL (3.4-5.0); Albumin/Globulin Ratio 0.8 (0.8-1.8); Anion Gap 4.0 mmol/L (3-11); Aspartate Aminotrans (AST/SGOT 49.0 U/L (12-37); Bilirubin, Total 1.3 mg/dL (0.1-1.0); Blood Urea Nitrogen 26.0 mg/dL (8-24); CO2, Blood 26.0 mmol/L (21-32); Calcium, Blood 8.2 mg/dL (8.5-10.1); Chloride, Blood 114.0 mmol/L (98-108); Creatinine, Blood 0.96 mg/dL (0.40-1.00); Globulin, Blood 3.4 g/dL (2.2-4.0); Glucose, Blood 128.0 mg/dL (70-99); Potassium, Blood 3.3 mmol/L (3.5-5.5); Sodium, Blood 141.0 mmol/L (136-145); Total Protein, Blood 6.1 g/dL (6.4-8.2)
[2025-01-15] MEDS ORDERED: Metoprolol Tartrate 1 MG/ML 5 ML VIAL IV ONE (23:00)
[2025-01-16] MEDS ORDERED: Ondansetron HCl 2 MG / ML 2ML Vial IV PRN (00:25)
[2025-01-16] MEDS ORDERED: Naloxone HCl 0.4MG / ML 1ML Vial IV PRN (00:30)
[2025-01-16 01:22] LABS: pH Blood Venous 7.40 (7.34-7.37)
[2025-01-16 01:31] VITALS: BP 161/112
[2025-01-16 02:11] LABS: U Amphetamine Screen Not Detected; U Barbituate Screen Not Detected; U Benzodiazapine Screen Not Detected; U Buprenorphine Screen Not Detected; U Cannabinoids Screen Not Detected; U Cocaine Screen Not Detected; U Methadone Screen Not Detected; U Methamphetamine Screen Not Detected; U Opiates Screen Not Detected; U Oxycodone Screen Not Detected; U Phencyclidine Screen Not Detected
[2025-01-16] MEDS ORDERED: Metoprolol Tartrate 1 MG/ML 5 ML VIAL IV ONE (02:20)
--- NOTE | 2025-01-16 03:27 | NUR ---
SHIFT SUMMARY: PT WAS ADMITTED TO THE FLOOR THIS SHIFT. PT IS VERY DISORIENTED, FIDGETING, RESTLESS, AND DIFFICULT TO CONSOLE. PT IS VERY LETHARGIC WELL AND DOES NOT KEEP EYES OPEN LONG ENOUGH FOR A CONVERSATION. PT REQUIRES REPEATED INSTRUCTIONS BEFORE COMPLETING INSTRUCTIONS. PT IS ON TELEMETRY MONITORING, AFIB 100-110s. METOPROLOL WAS GIVEN ONCE SINCE ARRIVING TO FLOOR. PT WAS VERY UNSTEADY ON HER FEET, PUREWICK IN PLACE FOR INCONTINENCE WELL. CALL LIGHT IS WITHIN REACH. BED ALARM IS ON. BED IS LOW AND LOCKED.
[2025-01-16 04:48] LABS: BASOPHILS ABSOLUTE AUTO 0.03 K/mm3 (0.00-0.23); BASOPHILS PERCENT AUTO 0 % (0-2); EOSINOPHILS ABSOLUTE AUTO 0.10 K/mm3 (0.00-0.68); EOSINOPHILS PERCENT AUTO 1 % (0-6); Hematocrit 35.2 % (33.0-51.0); Hemoglobin 10.7 g/dL (11.5-16.0); IMMATURE GRAN ABSOLUTE AUTO 0.01 K/mm3 (0.00-0.10); IMMATURE GRAN PERCENT AUTO 0 % (0-1); LYMPHOCYTES ABSOLUTE AUTO 2.55 K/mm3 (0.84-5.20); LYMPHOCYTES PERCENT AUTO 33 % (21-46); MONOCYTES ABSOLUTE AUTO 0.97 K/mm3 (0.16-1.47); MONOCYTES PERCENT AUTO 13 % (4-13); Mean Corpuscular HGB Conc 30.4 g/dL (31.5-36.5); Mean Corpuscular Volume 72 fL (80-100); NEUTROPHILS ABSOLUTE AUTO 3.99 K/mm3 (1.96-9.15); NEUTROPHILS PERCENT AUTO 52 % (41-73); NRBC ABSOLUTE 0.00 K/mm3 (0.00-0.02); NRBC Auto 0.0 /100 WBC (0.0-0.2); Platelet Count 332 K/mm3 (150-400); RDW Coefficient Variation 16.9 % (11.7-14.2); RDW Standard Deviation 42.8 fL (35.1-46.3)
[2025-01-16 05:21] LABS: Alanine Aminotransfer (ALT/SGP 58.0 U/L (12-78); Albumin, Blood 2.8 g/dL (3.4-5.0); Albumin/Globulin Ratio 0.8 (0.8-1.8); Anion Gap 7.0 mmol/L (3-11); Aspartate Aminotrans (AST/SGOT 48.0 U/L (12-37); Bilirubin, Total 1.1 mg/dL (0.1-1.0); Blood Urea Nitrogen 24.0 mg/dL (8-24); CO2, Blood 26.0 mmol/L (21-32); Calcium, Blood 8.0 mg/dL (8.5-10.1); Chloride, Blood 111.0 mmol/L (98-108); Creatinine, Blood 0.87 mg/dL (0.40-1.00); Globulin, Blood 3.5 g/dL (2.2-4.0); Glucose, Blood 107.0 mg/dL (70-99); Potassium, Blood 3.6 mmol/L (3.5-5.5); Sodium, Blood 140.0 mmol/L (136-145); Total Protein, Blood 6.3 g/dL (6.4-8.2)
[2025-01-16 05:27] LABS: Ferritin, Serum 18.0 ng/mL (8-252); Total Iron Binding Capacity 470.0 ug/dL (250-450)
[2025-01-16 08:51] VITALS: BP 156/113
[2025-01-16] MEDS ORDERED: Enoxaparin 40 MG/0.4 ML SYR SC SCH (09:00)
[2025-01-16 12:29] VITALS: BP 147/109
[2025-01-16 16:22] VITALS: BP 120/95
--- NOTE | 2025-01-16 18:30 | NUR ---
SHIFT SUMMARY PATIENT AROUSABLE BUT CONFUSED AT TIMES. PATIENT YELLING OUT "HUNGRY" WHEN AWAKENS. PATIENT EATING LARGE AMOUNTS OF FOOD WHEN AWAKE AND DRINKING FLUIDS. PATIENT DOES NOT REMEMBER WHY SHE IS HERE. PATIENT IS INCONTINENT, NEEDING FREQUENT CHANGES. WHEN AWAKE, PATIENT ABLE TO ANSWER QUESTIONS AND FOLLOW COMMANDS. PATIENT BATHED. HAIR TANGLED AND NEEDING TO COMB OUT MATTED HAIR. PATIENT DOES NOT REMEMBER WHEN SHE BATHED OR BRUSHED HER HAIR LAST.
[2025-01-16 19:58] VITALS: BP 131/102
[2025-01-16 23:56] VITALS: BP 104/86
[2025-01-17 03:37] VITALS: BP 131/104
[2025-01-17 04:42] LABS: BASOPHILS ABSOLUTE AUTO 0.02 K/mm3 (0.00-0.23); BASOPHILS PERCENT AUTO 0 % (0-2); EOSINOPHILS ABSOLUTE AUTO 0.10 K/mm3 (0.00-0.68); EOSINOPHILS PERCENT AUTO 1 % (0-6); Hematocrit 37.6 % (33.0-51.0); Hemoglobin 11.3 g/dL (11.5-16.0); IMMATURE GRAN ABSOLUTE AUTO 0.02 K/mm3 (0.00-0.10); IMMATURE GRAN PERCENT AUTO 0 % (0-1); LYMPHOCYTES ABSOLUTE AUTO 1.92 K/mm3 (0.84-5.20); LYMPHOCYTES PERCENT AUTO 26 % (21-46); MONOCYTES ABSOLUTE AUTO 0.73 K/mm3 (0.16-1.47); MONOCYTES PERCENT AUTO 10 % (4-13); Mean Corpuscular HGB Conc 30.1 g/dL (31.5-36.5); Mean Corpuscular Volume 71 fL (80-100); NEUTROPHILS ABSOLUTE AUTO 4.71 K/mm3 (1.96-9.15); NEUTROPHILS PERCENT AUTO 63 % (41-73); NRBC ABSOLUTE 0.00 K/mm3 (0.00-0.02); NRBC Auto 0.0 /100 WBC (0.0-0.2); Platelet Count 325 K/mm3 (150-400); RDW Coefficient Variation 16.9 % (11.7-14.2); RDW Standard Deviation 42.4 fL (35.1-46.3)
[2025-01-17 05:06] LABS: Alanine Aminotransfer (ALT/SGP 47.0 U/L (12-78); Albumin, Blood 2.4 g/dL (3.4-5.0); Albumin/Globulin Ratio 0.7 (0.8-1.8); Anion Gap 7.0 mmol/L (3-11); Aspartate Aminotrans (AST/SGOT 37.0 U/L (12-37); Bilirubin, Total 0.9 mg/dL (0.1-1.0); Blood Urea Nitrogen 29.0 mg/dL (8-24); CO2, Blood 31.0 mmol/L (21-32); Calcium, Blood 7.7 mg/dL (8.5-10.1); Chloride, Blood 107.0 mmol/L (98-108); Creatinine, Blood 0.89 mg/dL (0.40-1.00); Globulin, Blood 3.6 g/dL (2.2-4.0); Glucose, Blood 128.0 mg/dL (70-99); Potassium, Blood 3.5 mmol/L (3.5-5.5); Sodium, Blood 141.0 mmol/L (136-145); Total Protein, Blood 6.0 g/dL (6.4-8.2)
--- NOTE | 2025-01-17 07:19 | NUR ---
Shift Summary Orientation waxes and wanes depending on how awake pt is. At her best, she is oriented to self and hospital. Does not know why she is here or what the date is. Tele: Afib 105. 1PA to commode. Does not use call light, instead yells out what she needs or sets the bed alarm off by sitting at the edge of the bed. Had multiple accidents in bed, but also continent when fully awake. Denies pain. Eating well. RA. Uneventful night.
[2025-01-17 07:35] VITALS: BP 134/94
[2025-01-17 11:22] VITALS: BP 106/82
[2025-01-17 14:52] VITALS: BP 114/75
--- NOTE | 2025-01-17 18:25 | NUR ---
DAY SUMMARY A&OX3, FORGETFUL. SLEPT T/O MOST OF SHIFT, WAKES EASILY FOR CARES THAN FALLS BACK ASLEEP, VSS, MEDICATED X1 FOR C/O ESPINOSA, SLEEPING AT THIS TIME, CALL LIGHT IN REACH, BED ALARM ACTIVE, WILL CONT TO MONITOR
[2025-01-17 19:15] VITALS: BP 108/65
[2025-01-18 00:17] VITALS: BP 115/82
[2025-01-18 04:34] VITALS: BP 106/72
[2025-01-18 05:54] LABS: BASOPHILS ABSOLUTE AUTO 0.02 K/mm3 (0.00-0.23); BASOPHILS PERCENT AUTO 0 % (0-2); EOSINOPHILS ABSOLUTE AUTO 0.12 K/mm3 (0.00-0.68); EOSINOPHILS PERCENT AUTO 1 % (0-6); Hematocrit 41.9 % (33.0-51.0); Hemoglobin 12.7 g/dL (11.5-16.0); IMMATURE GRAN ABSOLUTE AUTO 0.02 K/mm3 (0.00-0.10); IMMATURE GRAN PERCENT AUTO 0 % (0-1); LYMPHOCYTES ABSOLUTE AUTO 1.98 K/mm3 (0.84-5.20); LYMPHOCYTES PERCENT AUTO 24 % (21-46); MONOCYTES ABSOLUTE AUTO 0.90 K/mm3 (0.16-1.47); MONOCYTES PERCENT AUTO 11 % (4-13); Mean Corpuscular HGB Conc 30.3 g/dL (31.5-36.5); Mean Corpuscular Volume 72 fL (80-100); NEUTROPHILS ABSOLUTE AUTO 5.29 K/mm3 (1.96-9.15); NEUTROPHILS PERCENT AUTO 64 % (41-73); NRBC ABSOLUTE 0.00 K/mm3 (0.00-0.02); NRBC Auto 0.0 /100 WBC (0.0-0.2); Platelet Count 338 K/mm3 (150-400); RDW Coefficient Variation 16.9 % (11.7-14.2); RDW Standard Deviation 42.5 fL (35.1-46.3)
[2025-01-18 06:29] LABS: Alanine Aminotransfer (ALT/SGP 44.0 U/L (12-78); Albumin, Blood 2.5 g/dL (3.4-5.0); Albumin/Globulin Ratio 0.6 (0.8-1.8); Anion Gap 7.0 mmol/L (3-11); Aspartate Aminotrans (AST/SGOT 37.0 U/L (12-37); Bilirubin, Total 0.5 mg/dL (0.1-1.0); Blood Urea Nitrogen 35.0 mg/dL (8-24); CO2, Blood 30.0 mmol/L (21-32); Calcium, Blood 7.9 mg/dL (8.5-10.1); Chloride, Blood 105.0 mmol/L (98-108); Creatinine, Blood 0.81 mg/dL (0.40-1.00); Globulin, Blood 3.9 g/dL (2.2-4.0); Glucose, Blood 134.0 mg/dL (70-99); Magnesium, Blood 2.0 mg/dL (1.6-2.4); Phosphorus, Blood 3.9 mg/dL (2.5-4.9); Potassium, Blood 3.8 mmol/L (3.5-5.5); Sodium, Blood 138.0 mmol/L (136-145); Total Protein, Blood 6.4 g/dL (6.4-8.2)
--- NOTE | 2025-01-18 06:35 | NUR ---
Shift Summary AOx2 to self and hospital. Uses call light approriately at times, but mostly yells out for help. Patient is impatient and demanding. Has been starving tonight per patient state. Snacks given as allowed. Tele: Afib 114. Early on shift, pt reported abdominal cramping. She had a small bm just prior th the abdominal cramping. Cramp resolved on its own. HH diet. Meds whole with water. 1800 fluid restriction ordered, however,pt yelling out demanding extra water and snacks. Educated on the 1800 fluid restriction and purpose of the restriction. No questions at this time, patient was receptive to teaching and stopped yelling out for water. Patient did well with independent to the bedside commode using stand pivot transfer tonight. 1PA FWW to ambulate (uses cane as baseline). Tele: Afib 114. Pt had uneventful night.
[2025-01-18 07:27] VITALS: BP 127/92
[2025-01-18 11:51] VITALS: BP 93/69
--- NOTE | 2025-01-18 14:10 | NUR ---
OT AND PT BOTH ATTEMPTED TO EVALUATE PATIENT AND WAS TOLD TO LEAVE THE ROOM BY PATIENT.
--- NOTE | 2025-01-18 15:23 | NUR ---
CALL PLACED TO MD TELLEZ THAT PATIENT WAS WANTING TO LEAVE. IV REMOVED AND PATIENT SIGNED AMA FORM. PATIENT SELF DRESSED AND WALKED TO CHAIRS BY MEDICAL FLOOR ELEVATOR AND SAT DOWN. PATIENT UNABLE TO AMBULATE ANY FURTHER. AFTER ABOUT 20 MIN THE PATIENT WAS RESTED ENOUGHT THAT SHE AMBULATED BACK TO ROOM AND WENT TO BED. ORDER PLACED FOR NICOTINE PATCH AND PATIENT GIVEN TYLENOL FOR ABD PAIN. TELE PLACED BACK ON PATIENT AND RESTING.
--- NOTE | 2025-01-18 17:35 | NUR ---
Pt. is awake in bed and welcomes my visit. Pt. is guarded at first, but warms as the visit progresses. Facilitated a life review and considered matters of raman and belief. Pt. also verbalized that she didn't remember much about coming into the hospital. As the visit continued rapport is developed. Pt. displayed evidence of trust and requested that this belt picker contact her catholic to let them know she is in the hospital. Prayed with the Pt. Pt. verbalized gratitude for the spiritual care visit. This belt picker contacted the Pts. cone trucker.
--- NOTE | 2025-01-18 18:15 | NUR ---
PATIENT ALERT TO PERSON MOST OF DAY, HAD TO REMIND PATIENT WHERE SHE WAS A FEW TIMES, PATIENT SLEPT OFF AND ON DURING SHIFT AND WHILE AWAKE WOULD NOT USE THE CALL LIGHT INSTEAD YELLED IN HER ROOM MULTIPLE THINGS LIKE " I AM HUNGRY" "IT IS HOT IN THIS PLACE" ECT. PATIENT EASILY CALMED DOWN ONCE IN ROOM WITH HER. SEE NOTE FOR PATIENTS ATTEMPT TO LEAVE AMA. WOULD LIKE TO GO TO [facility] IN [place] WHEN SHE CAN.
[2025-01-18 19:10] VITALS: BP 129/97
[2025-01-19] VITALS (7 sets, daily range): BP systolic 100–129; BP diastolic 63–90
--- NOTE | 2025-01-19 03:19 | NUR ---
SHIFT SUMMARY PATIENT HAS BEEN SLEEPING INTERMITTANTLY DURING THE NIGHT. SHE HAS HAD TYLENOL FOR A STOMACH ACHE. SHE ALSO HAS HAD ICE CREAM AND SANDWHICHES DURING THE NIGHT VITAL SIGNS HAVE BEEN STABLE EXCEPT FOR HER HEART RATE WHICH IS TACHYCARDIC IN THE LOW 100'S. PATIENT IS ORIENTED X4. SHE HAS HER CALL LIGHT WITHIN REACH SAFETY PRECAUTIONS ARE BEING MAINTAINED.
[2025-01-19 05:13] LABS: BASOPHILS ABSOLUTE AUTO 0.02 K/mm3 (0.00-0.23); BASOPHILS PERCENT AUTO 0 % (0-2); EOSINOPHILS ABSOLUTE AUTO 0.09 K/mm3 (0.00-0.68); EOSINOPHILS PERCENT AUTO 1 % (0-6); Hematocrit 43.3 % (33.0-51.0); Hemoglobin 12.9 g/dL (11.5-16.0); IMMATURE GRAN ABSOLUTE AUTO 0.02 K/mm3 (0.00-0.10); IMMATURE GRAN PERCENT AUTO 0 % (0-1); LYMPHOCYTES ABSOLUTE AUTO 2.20 K/mm3 (0.84-5.20); LYMPHOCYTES PERCENT AUTO 29 % (21-46); MONOCYTES ABSOLUTE AUTO 0.90 K/mm3 (0.16-1.47); MONOCYTES PERCENT AUTO 12 % (4-13); Mean Corpuscular HGB Conc 29.8 g/dL (31.5-36.5); Mean Corpuscular Volume 72 fL (80-100); NEUTROPHILS ABSOLUTE AUTO 4.41 K/mm3 (1.96-9.15); NEUTROPHILS PERCENT AUTO 58 % (41-73); NRBC ABSOLUTE 0.00 K/mm3 (0.00-0.02); NRBC Auto 0.0 /100 WBC (0.0-0.2); Platelet Count 379 K/mm3 (150-400); RDW Coefficient Variation 17.4 % (11.7-14.2); RDW Standard Deviation 43.0 fL (35.1-46.3)
[2025-01-19 05:50] LABS: Alanine Aminotransfer (ALT/SGP 42.0 U/L (12-78); Albumin, Blood 2.9 g/dL (3.4-5.0); Albumin/Globulin Ratio 0.7 (0.8-1.8); Anion Gap 6.0 mmol/L (3-11); Aspartate Aminotrans (AST/SGOT 39.0 U/L (12-37); Bilirubin, Total 1.0 mg/dL (0.1-1.0); Blood Urea Nitrogen 32.0 mg/dL (8-24); CO2, Blood 30.0 mmol/L (21-32); Calcium, Blood 8.1 mg/dL (8.5-10.1); Chloride, Blood 106.0 mmol/L (98-108); Creatinine, Blood 0.77 mg/dL (0.40-1.00); Globulin, Blood 4.0 g/dL (2.2-4.0); Glucose, Blood 106.0 mg/dL (70-99); Potassium, Blood 4.5 mmol/L (3.5-5.5); Sodium, Blood 137.0 mmol/L (136-145); Total Protein, Blood 6.9 g/dL (6.4-8.2)
--- NOTE | 2025-01-19 18:20 | NUR ---
SHIFT SUMMARY: NO NEW ACUTE CHANGES DURING THIS SHIFT. DIARESING PATIENT AND AWAITING DISCHARGE PLAN. PATIENT HAD COMPLAINTS OF DISCOMFORT IN ABDOMEN LATER THIS SHIFT, DR. LINO NOTIFIED AND ORDERS PUT IN PLACE FOR PAIN AND ANXIETY, CHECK EMAR FOR MORE DETAILS. PLAN OF CARE ONGOING AT THIS TIME. WILL CONTINUE TO MONITOR.
[2025-01-20 03:30] VITALS: BP 102/65
--- NOTE | 2025-01-20 04:18 | NUR ---
SHIFT SUMMARY PATIENT HAS BEEN SLEEPING INTERMITTANTLY THROUGHOUT THE NIGHT. SHE HAS ASKED FOR FOOD THROUGHOUT THE NIGHT AND GETS AGGITATED WITH HER CARRIER LOADER. BUT OVERALL SHE HAS BEEN PLEASANT AND COOPERTIVE. ORIENTED X 4. SAFTEY PRECAUTIONS ARE BEING MAINTAINED.
[2025-01-20 07:34] VITALS: BP 101/64
[2025-01-20 08:48] VITALS: BP 103/74
[2025-01-20] MEDS ORDERED: ELIQUIS5 M2 PO (10:29)
[2025-01-20] MEDS ORDERED: ATOR40TA PO (10:30)
[2025-01-20] MEDS ORDERED: BUSP5 PO (10:31)
[2025-01-20] MEDS ORDERED: JARDIANCE10 MG PO (10:31)
[2025-01-20] MEDS ORDERED: FURO20 PO (10:32)
[2025-01-20] MEDS ORDERED: LISI5 PO (10:33)
[2025-01-20] MEDS ORDERED: METO25ER PO (10:33)
[2025-01-20] MEDS ORDERED: POTA10T PO (10:34)
--- NOTE | 2025-01-20 14:24 | NUR ---
SPOKE WITH CAR RENTAL DELIVERER AND NO TRANSPORT BENEFIT AVAILABLE FOR PATIENT. SPOKE WITH CEASAR VALDEZ RN NURSING LICENSED HOME INSPECTOR WHO APPROVES RE[facility] [place] [place]. SPOKE WITH SHAWNA REZA LPN TO PASS ON INFORMATION REGARDING DC TRANSPORT
[2025-01-20 15:16] VITALS: BP 108/69
--- NOTE | 2025-01-20 16:53 | NUR ---
DISCHARGE SUMMARY: PATIENT DISCHARGED AROUND 1545 AT PATIENT ENTERANCE [facility]IA [facility] TO [facility] FOR MEDICATIONS AND HOME AFTER. PATIENT WAS EDUCATED ON ALL OF MEDICATIONS, DOSAGE, AND TIME INTERVALS. PATIENT EXPLAINED "KEENAN" CAN HELP HER WITH THESE. PATIENT VERBALIZED UNDERSTANDING OF MEDICATION COMPLIANCE AND NEEDING TO QUIT METHANPHETAMINES. BELONGS GIVEN BACK TO PATIENT BEFORE DISCHARGE.
== END 2025-01-20 16:00 | disposition home or self-care (01) | DRG 280 ==
LOC: ER 20:02 → MEDS 20:03
PROVIDERS: Family Medicine; Student in an Organized Health Care Education/Training Program; ADMIT Student in an Organized Health Care Education/Training Program
DX: I11.0 Hypertensive heart disease with heart failure (principal); I50.31 Acute diastolic (congestive) heart failure; I21.A1 Myocardial infarction type 2; Z59.01 Sheltered homelessness; F41.9 Anxiety disorder, unspecified; F17.210 Nicotine dependence, cigarettes, uncomplicated; F12.90 Cannabis use, unspecified, uncomplicated; I48.91 Unspecified atrial fibrillation; F15.10 Other stimulant abuse, uncomplicated; J44.9 Chronic obstructive pulmonary disease, unspecified; F32.A Depression, unspecified; E87.6 Hypokalemia; D64.9 Anemia, unspecified; R56.9 Unspecified convulsions; I27.20 Pulmonary hypertension, unspecified; Z86.19 Personal history of other infectious and parasitic diseases; Z86.73 Personal history of transient ischemic attack (TIA), and cerebral infarction without residual deficits; Z90.710 Acquired absence of both cervix and uterus; Z90.89 Acquired absence of other organs; Z88.8 Allergy status to other drugs, medicaments and biological substances; Z79.82 Long term (current) use of aspirin; Z79.01 Long term (current) use of anticoagulants; Z79.891 Long term (current) use of opiate analgesic; Z79.899 Other long term (current) drug therapy
CPT/HCPCS: 36415; 71045; 80053; 82728; 82803; 83540; 83550; 83735; 83880; 84100; 84145; 84443; 84484; 85025; 93005; 93010; 93306; 94762; 96374; 96375; 96376; 97161; 99285-25; A6590; A9270; G0378; J1938; J2405; J3360

== ENCOUNTER 2025-06-28 13:05 | Emergency (ER) | payer MEDICARE ==
[~2025-06-28] VITALS: Ht 154.9 cm; Wt 59.0 kg
[~2025-06-28 13:05] MED LIST changes: +BUSP5 PO; +FURO20 PO; +HYDACE25S PR; +JARDIANCE10 MG PO; +LISI5 PO; +POTA10T PO
[2025-06-28 14:19] LABS: BASOPHILS ABSOLUTE AUTO 0.04 K/mm3 (0.00-0.23); BASOPHILS PERCENT AUTO 0 % (0-2); EOSINOPHILS ABSOLUTE AUTO 0.04 K/mm3 (0.00-0.68); EOSINOPHILS PERCENT AUTO 0 % (0-6); Hematocrit 30.3 % (33.0-51.0); Hemoglobin 8.7 g/dL (11.5-16.0); IMMATURE GRAN ABSOLUTE AUTO 0.08 K/mm3 (0.00-0.10); IMMATURE GRAN PERCENT AUTO 1 % (0-1); LYMPHOCYTES ABSOLUTE AUTO 2.01 K/mm3 (0.84-5.20); LYMPHOCYTES PERCENT AUTO 20 % (21-46); MONOCYTES ABSOLUTE AUTO 1.31 K/mm3 (0.16-1.47); MONOCYTES PERCENT AUTO 13 % (4-13); Mean Corpuscular HGB Conc 28.7 g/dL (31.5-36.5); Mean Corpuscular Volume 65 fL (80-100); NEUTROPHILS ABSOLUTE AUTO 6.69 K/mm3 (1.96-9.15); NEUTROPHILS PERCENT AUTO 66 % (41-73); NRBC ABSOLUTE 0.00 K/mm3 (0.00-0.02); NRBC Auto 0.0 /100 WBC (0.0-0.2); Platelet Count 214 K/mm3 (150-400); RDW Coefficient Variation 19.9 % (11.7-14.2); RDW Standard Deviation 43.8 fL (35.1-46.3)
[2025-06-28 14:38] LABS: pH Blood Venous 7.38 (7.34-7.37)
[2025-06-28 15:02] LABS: Alanine Aminotransfer (ALT/SGP 78.0 U/L (12-78); Albumin, Blood 3.0 g/dL (3.4-5.0); Albumin/Globulin Ratio 0.7 (0.8-1.8); Anion Gap 7.0 mmol/L (3-11); Aspartate Aminotrans (AST/SGOT 58.0 U/L (12-37); Bilirubin, Total 0.9 mg/dL (0.1-1.0); Blood Urea Nitrogen 23.0 mg/dL (8-24); CO2, Blood 28.0 mmol/L (21-32); Calcium, Blood 8.3 mg/dL (8.5-10.1); Chloride, Blood 108.0 mmol/L (98-108); Creatinine, Blood 0.73 mg/dL (0.40-1.00); Globulin, Blood 4.1 g/dL (2.2-4.0); Glucose, Blood 84.0 mg/dL (70-99); Potassium, Blood 4.1 mmol/L (3.5-5.5); Sodium, Blood 139.0 mmol/L (136-145); Total Protein, Blood 7.1 g/dL (6.4-8.2)
[2025-06-28] MEDS ORDERED: FURO20 PO (18:07)
[2025-06-28 18:25] VITALS: BP 130/94
== END 2025-06-28 18:28 | disposition home or self-care (01) ==
LOC: ER 13:05
PROVIDERS: Student in an Organized Health Care Education/Training Program
DX: R06.02 Shortness of breath (principal); Z91.148 Patient's other noncompliance with medication regimen for other reason; I10 Essential (primary) hypertension; I48.91 Unspecified atrial fibrillation; J44.9 Chronic obstructive pulmonary disease, unspecified; Z88.8 Allergy status to other drugs, medicaments and biological substances; Z79.01 Long term (current) use of anticoagulants; Z79.899 Other long term (current) drug therapy; Z90.710 Acquired absence of both cervix and uterus
CPT/HCPCS: 71046; 80053; 82803; 83880; 85025; 93005; 93010; 99285-25